=== PATIENT | male | born 1940 | race African-American/Black ===

== ENCOUNTER 2020-08-09 15:40 | Inpatient (IN) | payer OTHER ==
[~2020-08-09] VITALS: Ht 172.7 cm; Wt 53.9 kg
[2020-08-09 16:52] LABS: BASOPHILS % (AUTO) 0.3 % (0.0-5.0); EOSINOPHILS % (AUTO) 0.9 % (0.0-8.0); HEMATOCRIT 42.2 % (42-54); MEAN CORPUSCULAR HGB CONC 31.8 g/dL (32.0-36.0); MEAN CORPUSCULAR VOLUME 88.3 fL (79-99); MONOCYTES % (AUTO) 8.4 % (3.0-13.0); PLATELET COUNT (AUTO) 348 K/uL (130-400); RED BLOOD CELL COUNT(AUTO) 4.78 MIL/uL (4.50-6.20); RED CELL DISTRIBUTION WIDTH 14.6 % (11.0-15.5); WHITE BLOOD COUNT (AUTO) 6.9 K/uL (4.8-10.8)
[2020-08-09 17:06] LABS: CREATININE 1.6 mg/dL (0.5-1.5); POTASSIUM 3.7 mmol/L (3.5-5.1)
[2020-08-09 17:11] LABS: ALBUMIN 3.1 g/dL (3.5-5.0); BILIRUBIN,TOTAL 0.3 mg/dL (0.2-1.0)
[2020-08-09] MEDS ORDERED: NITROGLYCERIN 0.4 MG SL TAB SL PRN (19:30)
[2020-08-09] MEDS ORDERED: ACETAMINOPHEN 650 MG SUPPOSITORY RC PRN ×2 (19:30)
[2020-08-09] MEDS: SODIUM CHLORIDE 0.9% 1000ML 1,000 ML IV SCH (19:30)
[2020-08-09] MEDS ORDERED: SODIUM CHLORIDE 0.9% 1000ML 1,000 ML IV SCH (19:30)
[2020-08-09] MEDS ORDERED: ONDANSETRON HCL 4 MG/2 ML VIAL IV PRN (19:30)
[2020-08-09 19:48] LABS: INR 0.94 (0.85-1.15); PARTIAL THROMBOPLASTIN TIME 27.8 SEC (26.3-35.5); PROTHROMBIN TIME 10.2 SEC (9.6-11.6)
[2020-08-09] MEDS ORDERED: HEPARIN SODIUM 5000UNIT/ML 1ML VIAL ONE (20:30)
[2020-08-09] MEDS ORDERED: SODIUM CHLORIDE 0.9% 1000ML 1,000 ML IV ONE (20:31)
[2020-08-09] MEDS: HEPARIN SODIUM 5000UNIT/ML 1ML VIAL SQ SCH (21:00)
[2020-08-09 21:24] LABS: CREATINE KINASE, TOTAL 43 U/L (21-232); MYOGLOBIN 65 ng/mL (10-92); TROPONIN I < 0.04 ng/mL (0.00-0.06)
[2020-08-09 22:53] LABS: APPEARANCE,URINE Clear (CLEAR); BILIRUBIN,URINE Negative (NEGATIVE); COLOR,URINE Yellow (YELLOW); GLUCOSE, URINE (UA) Negative (NEGATIVE); KETONES,URINE 15 mg/dL (NEGATIVE); LEUKOCYTE ESTERASE ,URINE Small (NEGATIVE); NITRATE,URINE Negative (NEGATIVE); OCCULT BLOOD,URINE Nonhemolyzed Trace (NEGATIVE); PROTEIN,URINE Trace mg/dL (NEGATIVE)
[2020-08-09 23:04] LABS: BACTERIA,URINE Few /HPF (None Seen); MUCUS,URINE Rare LPF (None Seen)
[2020-08-09 23:10] VITALS: BP 132/78
--- NOTE | 2020-08-09 23:35 | NUR ---
RECEIVED PATIENT FROM Ling, REPORT FROM TAYLOR MUÑOZ. PATIENT WAS SENT TO HOSPITAL FROM [facility] D/T ABDNORMAL CT ABD/PELVIS SCAN. DX SBO/ RIGHT INGUINAL HERNIA. PATIENT IS ALERT TO SELF ONLY, HE REMEMBERS HIS HE DOES NOT KNOW WHY HE IS HERE IN THE HOSPITAL. PATIENT IS NPO, DR. HOPKINS CONSULT PENDING TO BE SEEN BY MD. DR. HOPKINS WAS NOTIFIED BY ER OF CONSULT. PATIENT WITH ADVANCED DEMENTIA. UNABLE TO OBTAIN ANY INFORMATION FROM HIM. I CALLED THE NUMBERS ON ER NOTE: KAITLIN MONROE [phone], MAIL BOX FULL, UNABLE TO LEAVE MESSAGE. I CALLED THE OTHER NUMBER PROVIDED, RIYA CONTRERAS, , NOT A WORKING NUMBER. WILL CONT TO MONITOR PATIENT CLOSELY. TELE WITH SR 79.
[2020-08-10 03:52] VITALS: BP 127/58
[2020-08-10 03:59] LABS: BASOPHILS % (AUTO) 0.7 % (0.0-5.0); EOSINOPHILS % (AUTO) 1.4 % (0.0-8.0); HEMATOCRIT 36.8 % (42-54); LYMPHOCYTES % (AUTO) 21.6 % (21.0-51.0); MEAN CORPUSCULAR HEMOGLOBIN 28.1 pg (27.0-33.0); MEAN CORPUSCULAR HGB CONC 32.3 g/dL (32.0-36.0); MONOCYTES % (AUTO) 9.3 % (3.0-13.0); NEUTROPHILS % (AUTO) 66.8 % (40.0-77.0); PLATELET COUNT (AUTO) 362 K/uL (130-400); RED BLOOD CELL COUNT(AUTO) 4.23 MIL/uL (4.50-6.20); RED CELL DISTRIBUTION WIDTH 14.5 % (11.0-15.5); WHITE BLOOD COUNT (AUTO) 5.8 K/uL (4.8-10.8)
[2020-08-10 04:03] LABS: ALBUMIN 2.6 g/dL (3.5-5.0); BILIRUBIN,TOTAL 0.4 mg/dL (0.2-1.0); CREATININE 1.2 mg/dL (0.5-1.5); POTASSIUM 3.1 mmol/L (3.5-5.1); TOTAL PROTEIN, SERUM 6.8 g/dL (6.0-8.3)
[2020-08-10] MEDS: SODIUM CHLORIDE 0.9% 1000ML 1,000 ML IV SCH ×2 (05:09→15:30)
[2020-08-10 08:00] VITALS: BP 114/52
[2020-08-10] MEDS: POTASSIUM CHLORIDE 10MEQ/100ML 100 ML IV PRN ×2 (08:04→13:08)
[2020-08-10] MEDS: FAMOTIDINE/PF 20 MG/2 ML VIAL IV SCH (08:11)
[2020-08-10] MEDS: HEPARIN SODIUM 5000UNIT/ML 1ML VIAL SQ SCH ×3 (08:23→21:34)
--- NOTE | 2020-08-10 08:45 | NUR ---
SMILEY URIAS ROUNDING SMILEY URIAS FOR DR. KELLIE RAMESH AT THIS TIME. ASSESSED PATIENT AT BEDSIDE. PATIENT REPORTS NO ABDOMINAL DISCOMFORTS AT THIS TIME. SMILEY URIAS SAID NO SURGICAL INTERVENTION AT THIS TIME, NO NEED FOR NG TUBE SINCE NO NAUSEA/VOMITING REPORTED AND TO MAINTAIN NPO STATUS.
--- NOTE | 2020-08-10 09:25 | NUR ---
RD NOTIFICATION Pt admitted with SBO, Inguinal hernia, constipation. Pt is NPO and also pending surgical evaluation. Pt with low BMI (18.2), advanced age. High malnutrition risk related to inadequate energy/protein intake as evidenced by low BMI of 18.2. Pt with Heparin, Pepcid, KCl medications in place. Monitored labs: K 3.1, BUN 22, ALT 9, Alb 2.6. Recommend alternate means nutrition. RD to continue to monitor. Please notify as additional nutrition concerns arise. Thank you. Addendum: 08/10/20 at [address] Amended: Links added.
--- NOTE | 2020-08-10 09:50 | NUR ---
BARRY NOTE: Referral to BARRY--Unable to contact family, patient poor historian BARRY visited pt. who is oriented to self, reports that he resides with his mother in [place], and that he walked to this facility. BARRY contacted Ama Flowers [phone] information found in medical record and she reports that pt. resides at [facility] and that she transported pt. to ED last night. BARRY informed that pt. is single, has been a resident of [facility] less than a year and was referred by Emeka Mosqueda. Ama reports that pt's altered mental status is recent in the last five days, confused and decrease in appetite; prior to that was aware of all his surroundings and independent. Pt. has no DME, HH, Oxygen or provider services in the home, although they assist with meal prep, cleaning and transportation for their residents. Ama denies any current services through [facility] or [facility]. Ama stated that she will coal picker pt. when he is medially cleared for discharge. BARRY provided with pt's sister information: Nallely Rose [phone], [phone]. Telephone call to pt's sister Nallely, who reports that she resides in [place] and may be contacted for any concerns or consents needed, stating that pt. is single and had one son but age and whereabouts are unknown for years. Nallely stated that plan is for pt. to return to [facility] unless she can make arrangements to relocate pt. to [place]. Nallely provided additional contact: [facility]/Brother [phone] Pt's sister Nallely provided with BARRY's contact number as well as nurses station and [facility] Contact Information provided to TONI Arriola and [facility] by this worker. Contact information/Changes faxed to registration by this worker. Addendum: 08/10/20 at 1256 by PAUL CABRERA Amended: Links added.
--- NOTE | 2020-08-10 09:50 | NUR ---
Pt. is single, resides at [facility] [address]. bat person/CG Ama Flowers [phone] for transport home. No HH, DME, Oxygen or Provider services. PCP is Dr. Gonzalez and [place]; [facility] on [address]. Siblings reside out of town: Sister/Lian Rose [phone], ; Brother Elier Coelho [phone]. Plan is to return to [facility] at discharge, unless family can make arrangements to relocate with them. Addendum: 08/10/20 at 1227 by PAUL CABRERA Amended: Links added.
[2020-08-10 11:17] VITALS: BP 147/64
[2020-08-10 16:19] VITALS: BP 164/53
[2020-08-10 20:00] VITALS: BP 162/70
[2020-08-10] MEDS: DEXTROSE 5%-LACTATED RINGERS 1,000 ML IV SCH (23:54)
[2020-08-11] VITALS: BP 163/84
[2020-08-11 03:39] LABS: BASOPHILS % (AUTO) 1.1 % (0.0-5.0); EOSINOPHILS % (AUTO) 1.8 % (0.0-8.0); HEMATOCRIT 40.9 % (42-54); LYMPHOCYTES % (AUTO) 23.9 % (21.0-51.0); MEAN CORPUSCULAR VOLUME 87.4 fL (79-99); MONOCYTES % (AUTO) 11.9 % (3.0-13.0); NEUTROPHILS % (AUTO) 61.1 % (40.0-77.0); PLATELET COUNT (AUTO) 362 K/uL (130-400); RED BLOOD CELL COUNT(AUTO) 4.68 MIL/uL (4.50-6.20); RED CELL DISTRIBUTION WIDTH 14.5 % (11.0-15.5); WHITE BLOOD COUNT (AUTO) 4.5 K/uL (4.8-10.8)
[2020-08-11 03:58] LABS: CREATININE 1.1 mg/dL (0.5-1.5); POTASSIUM 3.5 mmol/L (3.5-5.1)
[2020-08-11 04:00] VITALS: BP_SYST 147; BP_SYST 162; BP_DIAS 74; BP_DIAS 75
[2020-08-11 08:00] VITALS: BP 149/77
[2020-08-11] MEDS: HEPARIN SODIUM 5000UNIT/ML 1ML VIAL SQ SCH ×3 (09:00→20:43)
[2020-08-11] MEDS ORDERED: LACTATED RINGERS 1000ML 1,000 ML IV ONE (10:00)
[2020-08-11] MEDS: FAMOTIDINE/PF 20 MG/2 ML VIAL IV SCH (10:18)
[2020-08-11] MEDS: AMLODIPINE BESYLATE 5 MG TAB PO SCH (10:18)
--- NOTE | 2020-08-11 10:18 | NUR ---
RD UPDATE Pt continues NPO pending Surgical Evaluation. Recommend to considered alternate means nutrition in the form of PPN or TPN secondary to compromised GI Function and malnutrition risk. Pt with low weight for stature and age. Anticipate NPO status >[address] to continue to monitor.
--- NOTE | 2020-08-11 11:26 | NUR ---
I have sent a message to SMILEY Molina to see if pt can start a diet, pending call back. i have also called the [facility] that pt lives at and left a message in regards to finding out pt's home medications and allergies.
[2020-08-11] MEDS: DEXTROSE 5%-LACTATED RINGERS 1,000 ML IV SCH (11:35)
--- NOTE | 2020-08-11 11:50 | NUR ---
i received a call back from luis at pt's assisted living and she stated that pt takes no home medications and is not allergic to any medications that she knows of. i have informed dr moran of this.
[2020-08-11 12:00] VITALS: BP 155/71
--- NOTE | 2020-08-11 14:35 | NUR ---
dr moran made aware pt is refusing to take the heparin injection
[2020-08-11 16:00] VITALS: BP 147/74
--- NOTE | 2020-08-11 18:59 | NUR ---
PT'S SITER SULAIMAN ALEGRE CALLED ON THE PHONE TO CHECK ON PATIENT AND SHE STATED SHE DOES NOT WANT HER BROTHER TO GO BACK TO THE [facility]AC[facility] AND THAT SHE WOULD PREFER WE CALL HER WHEN PT IS DISCHARGED AND A FAMILY MEMEBER WILL PICK HIM UP. SHE STATED SHE HAS ALREADY SPOKEN TO A ROOM MAID HERE AND TOLD THEM THIS.
[2020-08-11 19:39] VITALS: BP 172/83
[2020-08-12] VITALS: BP 126/59
[2020-08-12] MEDS: DEXTROSE 5%-LACTATED RINGERS 1,000 ML IV SCH ×2 (00:55→14:15)
[2020-08-12 04:00] VITALS: BP 124/55
[2020-08-12 08:00] VITALS: BP 115/63
[2020-08-12] MEDS: AMLODIPINE BESYLATE 5 MG TAB PO SCH (08:05)
[2020-08-12] MEDS: FAMOTIDINE/PF 20 MG/2 ML VIAL IV SCH (08:05)
[2020-08-12 08:17] LABS: THYROID STIMULATING HORMONE 2.27 uIU/mL (0.36-3.74)
--- NOTE | 2020-08-12 10:29 | NUR ---
i spoke to dr solis on the phone and informed of new consult for surgical clearance; order received to do a 2d echo
[2020-08-12] MEDS: HEPARIN SODIUM 5000UNIT/ML 1ML VIAL SQ SCH ×3 (10:50→20:56)
[2020-08-12 11:00] VITALS: BP 131/67
[2020-08-12 16:00] VITALS: BP 150/77
--- NOTE | 2020-08-12 16:22 | NUR ---
I HAVE SPOKEN TO PT'S SISTER MEGAN ALEGRE AND UPDATED HER ON PT'S CONDITION AND FACT THAT HE WOULD PROBABLY HAVE SURGERY THIS COMING FRIDAY PENDING CARDIAC SURGICAL CLEARANCE; I ASKED IF SHE WOULD GIVE A PHONE CONSENT FOR HIM TO UNDERGO THE SURGERY FRIDAY AND SHE STATED YES. I TRANSFERED THE CALL INTO PT'S ROOM SO THAT THEY COULD TALK TO EACH OTHER; PT IS UNABLE TO SIGN OWN CONSENT BECAUSE HE IS ORIENTED TO PERSON ONLY AND NOT ORIENTED TO DIAGNOSIS, PLACE OR TIME.
--- NOTE | 2020-08-12 18:42 | NUR ---
pt had a moderate size bowel movement that has a small amount of liquid stool and a moderate amount of formed soft stool; all a light brown color.
[2020-08-12 19:54] VITALS: BP 124/75
[2020-08-13 00:32] VITALS: BP 121/67
[2020-08-13] MEDS: DEXTROSE 5%-LACTATED RINGERS 1,000 ML IV SCH ×2 (03:35→16:55)
[2020-08-13 04:12] VITALS: BP 103/59
[2020-08-13 06:23] LABS: BASOPHILS % (AUTO) 0.9 % (0.0-5.0); EOSINOPHILS % (AUTO) 0.9 % (0.0-8.0); MEAN CORPUSCULAR HGB CONC 32.6 g/dL (32.0-36.0); MEAN CORPUSCULAR VOLUME 85.7 fL (79-99); MONOCYTES % (AUTO) 10.5 % (3.0-13.0); NEUTROPHILS % (AUTO) 62.3 % (40.0-77.0); PLATELET COUNT (AUTO) 358 K/uL (130-400); RED CELL DISTRIBUTION WIDTH 14.2 % (11.0-15.5); WHITE BLOOD COUNT (AUTO) 5.6 K/uL (4.8-10.8)
[2020-08-13 06:52] LABS: POTASSIUM 3.1 mmol/L (3.5-5.1)
[2020-08-13] MEDS ORDERED: LIDOCAINE HCL-MPF 1% 2ML VIAL IV PRN (07:00)
[2020-08-13] MEDS ORDERED: POTASSIUM CHLORIDE 10MEQ/100ML 100 ML IV PRN (07:00)
[2020-08-13] MEDS ORDERED: POTASSIUM CHLORIDE 20 MEQ ERTAB PO SCH (09:00)
[2020-08-13] MEDS: HEPARIN SODIUM 5000UNIT/ML 1ML VIAL SQ SCH (09:09)
[2020-08-13] MEDS: AMLODIPINE BESYLATE 5 MG TAB PO SCH (09:10)
[2020-08-13] MEDS: FAMOTIDINE/PF 20 MG/2 ML VIAL IV SCH (09:10)
[2020-08-13 12:00] VITALS: BP 105/53
[2020-08-13 12:20] LABS: CREATININE 1.3 mg/dL (0.5-1.5); MAGNESIUM 1.8 mg/dL (1.80-2.40); POTASSIUM 3.8 mmol/L (3.5-5.1)
--- NOTE | 2020-08-13 14:10 | NUR ---
i have spoken on the phone with pt's sister dimitrios bradley and received a phone consent for pt to go to surgery tomorrow for a hernia repair; 2nd witness carlos eduardo perez.
[2020-08-13 16:00] VITALS: BP 123/57
[2020-08-13 20:00] VITALS: BP 132/74
[2020-08-14] VITALS (26 sets, daily range): BP systolic 97–184; BP diastolic 43–98
[2020-08-14] MEDS: DEXTROSE 5%-LACTATED RINGERS 1,000 ML IV SCH (06:15)
[2020-08-14 07:10] LABS: BASOPHILS % (AUTO) 0.6 % (0.0-5.0); EOSINOPHILS % (AUTO) 1.8 % (0.0-8.0); HEMATOCRIT 40.7 % (42-54); LYMPHOCYTES % (AUTO) 24.6 % (21.0-51.0); MEAN CORPUSCULAR HEMOGLOBIN 28.1 pg (27.0-33.0); MEAN CORPUSCULAR HGB CONC 32.4 g/dL (32.0-36.0); MEAN CORPUSCULAR VOLUME 86.6 fL (79-99); MONOCYTES % (AUTO) 12.1 % (3.0-13.0); NEUTROPHILS % (AUTO) 60.5 % (40.0-77.0); PLATELET COUNT (AUTO) 322 K/uL (130-400); RED CELL DISTRIBUTION WIDTH 14.3 % (11.0-15.5)
[2020-08-14 07:20] LABS: CREATININE 1.1 mg/dL (0.5-1.5); MAGNESIUM 1.7 mg/dL (1.80-2.40); POTASSIUM 3.8 mmol/L (3.5-5.1)
[2020-08-14] MEDS: AMLODIPINE BESYLATE 5 MG TAB PO SCH (09:00)
[2020-08-14] MEDS: FAMOTIDINE/PF 20 MG/2 ML VIAL IV SCH (09:00)
--- NOTE | 2020-08-14 09:00 | NUR ---
PREOP PT TRANSFERRED FROM 3RD FLOOR TO HOLDING. PT HAS DEMENTIA BUT IS AWAKE AND ALERT AT THIS TIME. PT ORIENTED TO ROOM AND CALL LIGHT. WILL CONTINUE TO MONITOR PT.
--- NOTE | 2020-08-14 09:15 | NUR ---
SW NOTE: Call from pt's sister Lian Rose, requesting assistance with short term alternate placement for pt. Sister voiced that she would like if all possible for pt. not to return to [facility], stating they lack in communication with her about pt. Sister's plan is to relocate pt. to [place] with her, however, after pt. has completed all post op appointments. Sister informed that SW would speak w/Automobile Glass Technician about alternate plans at d/c and follow up with her this afternoon; Sister verbalized an understanding.
[2020-08-14] MEDS ORDERED: CEFAZOLIN SODIUM 1 GM VIAL ONE (09:45)
[2020-08-14] MEDS ORDERED: LIDOCAINE PF 2% 5ML ABBOJECT ONE (09:55)
[2020-08-14] MEDS ORDERED: SUCCINYLCHOLINE CHLORIDE 20 MG/ML 10 ML VIAL ONE (09:55)
[2020-08-14] MEDS ORDERED: MIDAZOLAM HCL 1 MG/ML 2ML VIAL ONE (09:56)
[2020-08-14] MEDS ORDERED: GLYCOPYRROLATE 1 MG/5 ML SYRINGE ONE (09:56)
[2020-08-14] MEDS ORDERED: DEXAMETHASONE SOD PHOSPHATE 10MG/ML 1ML VIAL ONE ×2 (09:56→11:00)
[2020-08-14] MEDS ORDERED: ONDANSETRON HCL 4 MG/2 ML VIAL ONE (09:56)
[2020-08-14] MEDS ORDERED: PROPOFOL 10 MG/ML 20ML VIAL IV ONE (09:56)
[2020-08-14] MEDS ORDERED: NEOSTIGMINE 5MG/5ML SYR IV ONE (09:56)
[2020-08-14] MEDS ORDERED: LACTATED RINGERS 1000ML 1,000 ML IV ONE (09:57)
[2020-08-14] MEDS ORDERED: ROCURONIUM 10MG/1ML SYR 10 MG/ML ML ONE (09:57)
[2020-08-14] MEDS ORDERED: FENTANYL CITRATE PF 50 MCG/1 ML 2ML VIAL ONE (09:57)
[2020-08-14] MEDS ORDERED: CEFAZOLIN SODIUM 1 GM VIAL IVP PRN (10:00)
[2020-08-14] MEDS ORDERED: EPHEDRINE SULFATE 50 MG/ML AMPULE ONE (10:23)
--- NOTE | 2020-08-14 14:30 | NUR ---
Telephone call from pt's sister Lian Rose, re-temporary placement options, again, stating if no alternate found pt. would have to return to [facility]. SW phoned [facility] and was informed no bed availability; sister informed inquiries would be made to other homes and depending on pt's needs post dc SNF. BARRY will discuss with Sheldon/DEENA. Pt's sister provided with information on [employer] [employer] in [place] as well as national hotline number.
--- NOTE | 2020-08-14 14:39 | NUR ---
RD FOLLOW UP Pt at time of assessment is NPO. Pt has hernia repair sx scheduled for 08/14/20 as per EMR Pt was previously on a CLD and consumed 25%, as per RN pt tolerated diet well Pt has had bowel movements Pt has low BMI for age. (BMI OF 17.6) Pt is moderate-severe malnourished as evidenced by low BMI for age and muscle/fat loss upon NFPA. RD RECOMMENDATION: Advance diet as tolerated When medically appropriate, consider GI soft diet. Ensure TID. Monitor for chewing/swallowing difficulty. Monitor PO tolerance and PO intake RD will continue to monitor pt's status Contact as nutritional concerns arise. LABS: K 3.8, TOT CA 9.8, ALB 2.6, LBM: 08/12/20 Addendum: 08/14/20 at [address] Amended: Links added.
[2020-08-14] MEDS ORDERED: MORPHINE SULFATE 2 MG/ML 1ML SYG IVP ONE ×2 (18:45→20:30)
[2020-08-14 20:33] LABS: HEMATOCRIT 39.4 % (42-54); MEAN CORPUSCULAR HEMOGLOBIN 28.3 pg (27.0-33.0); MEAN CORPUSCULAR HGB CONC 32.7 g/dL (32.0-36.0); MEAN CORPUSCULAR VOLUME 86.4 fL (79-99); RED BLOOD CELL COUNT(AUTO) 4.56 MIL/uL (4.50-6.20); RED CELL DISTRIBUTION WIDTH 14.5 % (11.0-15.5); WHITE BLOOD COUNT (AUTO) 14.9 K/uL (4.8-10.8)
[2020-08-14 20:43] LABS: CREATININE 1.4 mg/dL (0.5-1.5); MAGNESIUM 1.4 mg/dL (1.80-2.40); POTASSIUM 3.9 mmol/L (3.5-5.1)
[2020-08-14] MEDS: MAGNESIUM 2GM PREMIX 50ML 50 ML IV PRN (21:37)
[2020-08-15 03:26] LABS: CREATININE 1.5 mg/dL (0.5-1.5); MAGNESIUM 2.5 mg/dL (1.80-2.40); POTASSIUM 3.8 mmol/L (3.5-5.1)
[2020-08-15 03:48] VITALS: BP 137/77
[2020-08-15 06:09] LABS: BASOPHILS % (AUTO) 0.3 % (0.0-5.0); EOSINOPHILS % (AUTO) 0.1 % (0.0-8.0); HEMATOCRIT 41.7 % (42-54); LYMPHOCYTES % (AUTO) 5.2 % (21.0-51.0); MEAN CORPUSCULAR HEMOGLOBIN 28.1 pg (27.0-33.0); MEAN CORPUSCULAR HGB CONC 32.9 g/dL (32.0-36.0); MEAN CORPUSCULAR VOLUME 85.6 fL (79-99); MONOCYTES % (AUTO) 9.2 % (3.0-13.0); NEUTROPHILS % (AUTO) 84.9 % (40.0-77.0); PLATELET COUNT (AUTO) 207 K/uL (130-400); RED BLOOD CELL COUNT(AUTO) 4.87 MIL/uL (4.50-6.20); RED CELL DISTRIBUTION WIDTH 14.4 % (11.0-15.5); WHITE BLOOD COUNT (AUTO) 14.5 K/uL (4.8-10.8)
[2020-08-15 07:50] VITALS: BP 155/79
[2020-08-15] MEDS ORDERED: KETOROLAC TROMETHAMINE 15MG/ML IV PRN (09:15)
[2020-08-15] MEDS: LACTATED RINGERS 1000ML 1,000 ML IV SCH ×2 (09:15→23:33)
[2020-08-15 09:50] LABS: CREATINE KINASE, TOTAL 165 U/L (21-232); MYOGLOBIN 120 ng/mL (10-92); TROPONIN I < 0.04 ng/mL (0.00-0.06)
[2020-08-15] MEDS ORDERED: CEFTRIAXONE SODIUM 1 GM IVP SCH (10:00)
[2020-08-15] MEDS: FAMOTIDINE/PF 20 MG/2 ML VIAL IV SCH (10:36)
[2020-08-15] MEDS: AMLODIPINE BESYLATE 5 MG TAB PO SCH (10:36)
--- NOTE | 2020-08-15 11:40 | NUR ---
SW NOTE: Spoke with pt's sister Lian Rose, re-information on other placement options. SW contacted [facility] [phone] and spoke w/Mindy who reported as of this time, one bed available; this information provided to Ms. Rose. Again, SW stressed the importance of selecting placement, new retirement vs. returning to [facility] vs SNF, so that CM could assist in referral process/planning. Pt's sister Ms. Rose verbalized an understanding, stating she will contact Mindy[facility], then discuss with her brother Elier and notify this worker. SW will continue to follow and assist as needed. Again: [facility] contacted by this worker and no bed availability. CM/Gabi martínez.
[2020-08-15 12:00] VITALS: BP 162/82
--- NOTE | 2020-08-15 14:55 | NUR ---
DYSPHAGIA EVAL COMPLETED. +S/S OF ASPIRATION OF RESIDUE IN ORAL CAVITY WITH SOLIDS AT THIS TIME. RECOMMEND MECHANICAL SOFT/GROUND, THIN LIQUIDS, PILLS WHOLE WITH FOOD TOLERATED. STRATEGIES RECOMMENDED: CHECK FOR POCKETING/RESIDUE AFTER MEALS, ALTERNATE BITES/SIPS, EXTRA DRY SWALLOWS, SMALL BITES/SIPS AND SIT UPRIGHT DURING AND 30 MINUTES AFTER P.O. INTAKE. SPECIAL FORCES COMMUNICATIONS SERGEANT COORDINATED WITH NURSE RAMOS OF RESULTS AND RECOMMENDATIONS. Addendum: 08/15/[address]AKARI KAISER Amended: Links added.
[2020-08-15 15:45] LABS: CREATINE KINASE, TOTAL 178 U/L (21-232); MYOGLOBIN 102 ng/mL (10-92); TROPONIN I < 0.04 ng/mL (0.00-0.06)
[2020-08-15 16:00] VITALS: BP 119/75
--- NOTE | 2020-08-15 16:30 | NUR ---
SW NOTE: Call back from pt's sister Ms. Rose stating she is awaiting call back from [facility]; d/c plan pending. Ms. Rose to follow up with this worker tomorrow. Gabi/DEENA made aware.
[2020-08-15 19:16] VITALS: BP 143/77
[2020-08-15] MEDS: ACETAMINOPHEN 325 MG TAB PO SCH (20:30)
[2020-08-15 23:30] VITALS: BP 142/74
[2020-08-16 03:54] VITALS: BP 149/85
--- NOTE | 2020-08-16 04:00 | NUR ---
ROUNDS PATIENT RESTING IN BED WITH OU CLOSED. EASILY AROUSED. EXTRA TIME NEEDED TO VOICE NEEDS. NO COMPLAINTS OF PAIN. NO FACIAL GRIMACING NOTED. RESP EVEN AND UNLABORED. NO SOB NOTED. VITALS STABLE. AFEBRILE. RESP EVEN AND UNLABORED. NO SOB NOTED. ON ROOM AIR. TOLERATING LR AT 60ML/HR. NO NAUSEA OR VOMITING NOTED. TOTAL CARE RENDERED Q2H AND PRN. FALL PRECAUTIONS IN PLACE. SITTER IN PLACE. NO SIGNS OF DISTRESS NOTED. CALL LIGHT WITHIN REACH. WILL CONTINUE TO BE OBSERVED. Addendum: 08/16/20 at 0413 by JB CABRERA RN RN Amended: Links added.
[2020-08-16] MEDS: ACETAMINOPHEN 325 MG TAB PO SCH (04:34)
[2020-08-16 05:34] LABS: BASOPHILS % (AUTO) 0.4 % (0.0-5.0); EOSINOPHILS % (AUTO) 1.3 % (0.0-8.0); HEMATOCRIT 39.2 % (42-54); LYMPHOCYTES % (AUTO) 9.1 % (21.0-51.0); MEAN CORPUSCULAR HGB CONC 32.1 g/dL (32.0-36.0); MEAN CORPUSCULAR VOLUME 87.1 fL (79-99); MONOCYTES % (AUTO) 11.7 % (3.0-13.0); NEUTROPHILS % (AUTO) 77.1 % (40.0-77.0); PLATELET COUNT (AUTO) 257 K/uL (130-400); RED CELL DISTRIBUTION WIDTH 14.7 % (11.0-15.5); WHITE BLOOD COUNT (AUTO) 11.1 K/uL (4.8-10.8)
[2020-08-16 06:19] LABS: CARBON DIOXIDE 28 mmol/L (21-32); CHLORIDE 110 mmol/L (101-111); CREATINE KINASE, TOTAL 180 U/L (21-232); CREATININE 2.1 mg/dL (0.5-1.5); GLOMERULAR FILTR. RATE CALC 39 mL/min (>60); GLUCOSE,RANDOM 116 mg/dL (70-105); MYOGLOBIN 69 ng/mL (10-92); POTASSIUM 3.5 mmol/L (3.5-5.1); SODIUM SERUM 144 mmol/L (136-145); TROPONIN I < 0.04 ng/mL (0.00-0.06); UREA NITROGEN, BLOOD 12 mg/dL (7-18)
[2020-08-16] MEDS: TRAMADOL HCL 50 MG TABLET PO PRN (07:25)
[2020-08-16 08:00] VITALS: BP 169/82
--- NOTE | 2020-08-16 08:55 | NUR ---
FOLLOW UP COMPLETED. RECYCLING MANAGER COORDINATED WITH NURSE ETIENNE. PATIENT RECOMMENDED DIET MECHANICAL SOFT/FINELY CHOPPED SOLIDS, THIN LIQUIDS. PER NURSE, PATIENT WAS ADVANCED FROM LIQUID DIET TO PUREE SOLIDS AND TOLERATING IT WELL AND WITH NO S/S OF ASPIRATION. RECYCLING MANAGER WILL CONTINUE TO FOLLOW PATIENT TO SEE IF HE TOLERATES MECH SOFT/GROUND ONCE PATIENT IS ADVANCED. Addendum: 08/16/[address]AKARI KAISER Amended: Links added.
[2020-08-16] MEDS: FAMOTIDINE/PF 20 MG/2 ML VIAL IV SCH (09:31)
[2020-08-16] MEDS: AMLODIPINE BESYLATE 5 MG TAB PO SCH (09:31)
--- NOTE | 2020-08-16 10:00 | NUR ---
BARRY NOTE BARRY spoke with pt's sister Lian Rose who stated that she has spoken with Ms. Mendoza/[facility], is satisfied with conversation/outcome and Ms. Lian Rose requested that pt. be [facility] at discharge. BARRY contacted Ama Flowers/[facility] to inquire if they are able to provide transportation at d/c and Ama stated that they are and that she will forklift picker pt. when medically cleared. Contact Number for Transportation at d/c: Ama Flowers [phone] AshleyRN made aware.
--- NOTE | 2020-08-16 11:31 | NUR ---
CM Note: POC CM spoke to Elizabet REDDY regarding dc dispo, as per sister pt ok to go back to [facility] to finish this year and then will plan to transfer pt closer to home. As per Elizabet Quintero [facility] reaccepted patient and may come flower buncher or picker pt by their facility van whenever ready to dc. Primary nurse Orin MUÑOZ made aware. Dr Beny Li updated. CM to continue to follow up.
[2020-08-16 11:42] VITALS: BP 160/72
[2020-08-16] MEDS: LACTATED RINGERS 1000ML 1,000 ML IV SCH ×2 (13:34→21:34)
--- NOTE | 2020-08-16 14:00 | NUR ---
RD FOLLOW UP Pt is currently on a GI soft diet with a puree modification. As per PAYROLL AND BENEFITS ANALYST, pt is tolerating diet and consumed 100% of breakfast and lunch. ASSOCIATE PROFESSOR OF MATHEMATICS recommendations are of mechanical soft/ground with thin liquids. RD RECOMMENDATION: Continue current diet order. When medically feasible, advance pt to a mechanical soft/ground diet modifier as per ASSOCIATE PROFESSOR OF MATHEMATICS recommendation If PO intake <50% consider ONS Ensure BID. Monitor PO intake RD will continue to follow, thank you Addendum: 08/16/20 at [address] Amended: Links added.
--- NOTE | 2020-08-16 14:41 | NUR ---
having difficulty collecting urine sample for sodium and creatine, pt cont. to void incontinent into diaper instead of using the urinal; i have removed pt's diaper and left off and placed a urinal between his legs and encouraged him to use it; will cont. to monitor.
[2020-08-16 16:00] VITALS: BP 160/88
--- NOTE | 2020-08-16 17:50 | NUR ---
PT CONTINUES TO VOID INCONTINENT AND WONT USE THE URINAL; WHEN I TALKED TO HIM ABOUT IN AND OUT CATHING HIM TO COLLECT A URINE SAMPLE HE REFUSED AND SQUEEZED HIS LEGS TIGHTLY TOGETHER AND WOULD NOT LET ME GET NEAR HIM.
[2020-08-16] MEDS: DOCUSATE SODIUM 100 MG CAP PO SCH (19:13)
[2020-08-16 20:04] VITALS: BP 162/75
[2020-08-16 23:54] VITALS: BP 168/90
[2020-08-17 04:04] VITALS: BP 171/86
[2020-08-17] MEDS: LACTATED RINGERS 1000ML 1,000 ML IV SCH ×2 (04:46→19:21)
[2020-08-17 06:08] LABS: BASOPHILS % (AUTO) 0.5 % (0.0-5.0); EOSINOPHILS % (AUTO) 2.9 % (0.0-8.0); HEMATOCRIT 38.9 % (42-54); LYMPHOCYTES % (AUTO) 9.5 % (21.0-51.0); MEAN CORPUSCULAR HEMOGLOBIN 27.9 pg (27.0-33.0); MEAN CORPUSCULAR HGB CONC 32.1 g/dL (32.0-36.0); MEAN CORPUSCULAR VOLUME 86.8 fL (79-99); MONOCYTES % (AUTO) 7.9 % (3.0-13.0); NEUTROPHILS % (AUTO) 78.8 % (40.0-77.0); PLATELET COUNT (AUTO) 285 K/uL (130-400); RED BLOOD CELL COUNT(AUTO) 4.48 MIL/uL (4.50-6.20); RED CELL DISTRIBUTION WIDTH 14.9 % (11.0-15.5); WHITE BLOOD COUNT (AUTO) 10.5 K/uL (4.8-10.8)
[2020-08-17 06:23] LABS: CREATININE 2.6 mg/dL (0.5-1.5); POTASSIUM 3.4 mmol/L (3.5-5.1)
--- NOTE | 2020-08-17 07:00 | NUR ---
URINE FOR SODIUM AND CREATINE COLLECTED AND SENT TO LAB
[2020-08-17 07:28] LABS: CREATININE,URINE RANDOM 23 mg/dL (30-135); SODIUM,URINE RANDOM 108 mmol/l (40-220)
[2020-08-17 07:56] VITALS: BP 138/99
[2020-08-17] MEDS: DOCUSATE SODIUM 100 MG CAP PO SCH ×2 (08:20→20:32)
[2020-08-17] MEDS: FAMOTIDINE/PF 20 MG/2 ML VIAL IV SCH (08:20)
[2020-08-17] MEDS: AMLODIPINE BESYLATE 5 MG TAB PO SCH (08:20)
[2020-08-17] MEDS: TRAMADOL HCL 50 MG TABLET PO PRN ×2 (08:21→20:32)
[2020-08-17 11:01] VITALS: BP 152/86
[2020-08-17] MEDS: POTASSIUM CHLORIDE 20 MEQ ERTAB PO PRN (11:20)
--- NOTE | 2020-08-17 13:05 | NUR ---
DR JOSELIN OLIVERA ROUNDED ON PATIENT ORDERS RECEIVED FOR CMP,CBC AND PHOS LAB DRAW IN AM. ORDERS PLACED
[2020-08-17 15:38] VITALS: BP 131/79
[2020-08-17 19:00] VITALS: BP 147/70
--- NOTE | 2020-08-17 20:00 | NUR ---
assessment patient awake, alert, ox1, no sob, no c/o pain, patient poor insight, no teaching done, dressing abdomen, 1:[address] at bedside, call alejandro at reach
[2020-08-17] MEDS: HEPARIN SODIUM 5000UNIT/ML 1ML VIAL SQ SCH (23:46)
[2020-08-18] VITALS: BP 163/79
[2020-08-18 04:00] VITALS: BP 130/62
[2020-08-18 06:05] LABS: HEMATOCRIT 35.8 % (42-54); MEAN CORPUSCULAR HEMOGLOBIN 28.4 pg (27.0-33.0); MEAN CORPUSCULAR VOLUME 86.1 fL (79-99); PLATELET COUNT (AUTO) 246 K/uL (130-400); RED BLOOD CELL COUNT(AUTO) 4.16 MIL/uL (4.50-6.20); RED CELL DISTRIBUTION WIDTH 14.8 % (11.0-15.5); WHITE BLOOD COUNT (AUTO) 8.7 K/uL (4.8-10.8)
[2020-08-18 06:28] LABS: BAND NEUTROPHILS % (MANUAL) 3 % (0-2); BASOPHILS % (MANUAL) 4 % (0-2); EOSINOPHILS % (MANUAL) 8 % (1-6); LYMPHOCYTES % (MANUAL) 13 % (22-44); MAN.DIFF COMMENT-IMPRESSION MANUAL DIFFERENTIAL; MONOCYTES % (MANUAL) 6 % (2-9); PLATELET MORPHOLOGY COMMENT ADEQUATE; REACTIVE LYMPHOCYTES 2 % (0-0); SEGMENTED NEUTROPHILS % 64 % (40-70)
[2020-08-18 06:33] LABS: ALBUMIN 2.4 g/dL (3.5-5.0); BILIRUBIN,TOTAL 0.5 mg/dL (0.2-1.0); CREATININE 3.1 mg/dL (0.5-1.5); PHOSPHORUS 3.3 mg/dL (2.5-4.9); POTASSIUM 3.4 mmol/L (3.5-5.1); TOTAL PROTEIN, SERUM 6.7 g/dL (6.0-8.3)
[2020-08-18] MEDS: FAMOTIDINE/PF 20 MG/2 ML VIAL IV SCH (08:28)
[2020-08-18] MEDS: AMLODIPINE BESYLATE 5 MG TAB PO SCH (08:28)
[2020-08-18] MEDS: DOCUSATE SODIUM 100 MG CAP PO SCH ×2 (08:29→20:06)
--- NOTE | 2020-08-18 09:10 | NUR ---
FOLLOW UP COMPLETED. PERSONAL FINANCIAL ADVISOR COORDINATED WITH NURSE JORGENSEN. PER NURSE, PATIENT IS TOLERATING PUREED WITH SOME DIFFICULTY (INCREASED TIME IN ORAL CAVITY). PATIENT IS NOT READY TO ADVANCE TO MECHANICAL SOFT/FINELY CHOPPED AT THIS TIME. CONTINUE WITH PUREED SOLIDS TOLERATED. NOTIFY PERSONAL FINANCIAL ADVISOR IF FURTHER EVALUATION IS NEEDED OR IF PATIENT'S STATUS CHANGES. Addendum: 08/18/[address]AKARI KAISER Amended: Links added.
[2020-08-18] MEDS: HEPARIN SODIUM 5000UNIT/ML 1ML VIAL SQ SCH ×2 (10:42→20:33)
[2020-08-18] MEDS: LACTATED RINGERS 1000ML 1,000 ML IV SCH ×2 (13:45→13:49)
--- NOTE | 2020-08-18 14:20 | NUR ---
BOWEL MOVEMENT ASSISTED ELECTRIC WIRER TO HELP CLEAN PATIENT AFTER A BOWEL MOVEMENT, STOOL LIGHT BROWN IN COLOR AND SOFT. PATIENT ALSO APPEARED TO HAVE SMALL AMOUNT OF URINE IN BRIEFS, SO I PERFORMED POST VOID BLADDER RESIDUAL OBTAINED READING OF 837 ML.
--- NOTE | 2020-08-18 14:30 | NUR ---
URINARY RETENTION PERFORMED BLADDER SCAN AND OBTAINED READING OF 837 ML. PATIENT ALERT AND ORIENTED X1, UNABLE TO RECEIVE TEACHING ON PURPOSE FOR SULTANA CATHETER INSERTION. I DID TELL PATIENT HE HAD A LOT OF URINE IN HIS BLADDER AND SO I WOULD HAVE TO PLACE A SULTANA CATHETER TO EMPTY HIS BLADDER. PATIENT DID APPEAR UNCOMFORTABLE, CREDENTIALING MANAGER ASSISTED TO HELP PATIENT MAINTAIN APPROPRIATE SUPINE POSITION TO EASE SULTANA CATHETER INSERTION. STERILE TECHNIQUE USED TO PLACE 14 FR SULTANA CATHETER UNTIL URINE VISIBLE IN SULTANA CATHETER. INFLATED SULTANA CATHETER BALLOON WITH 10CC SALINE SYRINGE, ANCHORED SULTANA CATHETER TO LEFT UPPER THIGH USING STATLOCK DEVICE. APPROXIMATELY 900ML OF YELLOW COLORED URINE EMPTIED INTO SULTANA CATHETER BAG. PATIENT APPEARED MORE COMFORTABLE AFTER SULTANA CATHETER INSERTION. I ASKED PATIENT IF HE FELT BETTER AND PATIENT SMILED AND NODDED.
[2020-08-18 17:03] LABS: APPEARANCE,URINE Clear (CLEAR); BILIRUBIN,URINE Negative (NEGATIVE); COLOR,URINE Yellow (YELLOW); GLUCOSE, URINE (UA) Negative (NEGATIVE); KETONES,URINE Negative (NEGATIVE); LEUKOCYTE ESTERASE ,URINE Negative (NEGATIVE); NITRATE,URINE Negative (NEGATIVE); OCCULT BLOOD,URINE Small (NEGATIVE); PH,URINE 7.5 (5.0-8.0); PROTEIN,URINE Negative (NEGATIVE); UROBILINOGEN,URINE 0.2 mg/dL (0.2-1.0)
[2020-08-18 17:21] LABS: BACTERIA,URINE Rare /HPF (None Seen); WBC,URINE 0-1 /HPF (0-1)
[2020-08-18 17:23] LABS: SQUAMOUS EPITHELIAL CELL,UR None Seen /HPF (0-2)
[2020-08-18] MEDS ORDERED: THIAMINE HCL 100 MG TABLET PO SCH (17:30)
[2020-08-18] MEDS ORDERED: FOLIC ACID 1 MG TABLET PO SCH (17:30)
[2020-08-18] MEDS ORDERED: CYANOCOBALAMIN (VITAMIN B-12) 1,000 MCG TABLET PO SCH (17:30)
[2020-08-18 17:46] LABS: CREATININE 2.9 mg/dL (0.5-1.5); POTASSIUM 3.8 mmol/L (3.5-5.1)
[2020-08-18 19:59] VITALS: BP 146/87
[2020-08-18] MEDS: TRAMADOL HCL 50 MG TABLET PO PRN (20:06)
[2020-08-18 23:09] VITALS: BP 139/74
[2020-08-19] MEDS: LACTATED RINGERS 1000ML 1,000 ML IV SCH ×2 (02:14→18:06)
[2020-08-19 03:15] VITALS: BP 128/75
[2020-08-19 05:55] LABS: HEMATOCRIT 37.6 % (42-54); MEAN CORPUSCULAR HGB CONC 32.4 g/dL (32.0-36.0); MEAN CORPUSCULAR VOLUME 86.2 fL (79-99); PLATELET COUNT (AUTO) 250 K/uL (130-400); RED BLOOD CELL COUNT(AUTO) 4.36 MIL/uL (4.50-6.20); RED CELL DISTRIBUTION WIDTH 14.7 % (11.0-15.5); WHITE BLOOD COUNT (AUTO) 6.4 K/uL (4.8-10.8)
[2020-08-19 06:02] LABS: CREATININE 1.5 mg/dL (0.5-1.5); MAGNESIUM 1.7 mg/dL (1.80-2.40); PHOSPHORUS 3.8 mg/dL (2.5-4.9); POTASSIUM 3.4 mmol/L (3.5-5.1)
[2020-08-19] MEDS: POTASSIUM CHLORIDE 10% ELIXIR 20 MEQ/15 ML UDCUP PO PRN (06:18)
[2020-08-19 06:23] LABS: BAND NEUTROPHILS % (MANUAL) 4 % (0-2); BASOPHILS % (MANUAL) 1 % (0-2); EOSINOPHILS % (MANUAL) 5 % (1-6); LYMPHOCYTES % (MANUAL) 28 % (22-44); MAN.DIFF COMMENT-IMPRESSION MANUAL DIFFERENTIAL; MONOCYTES % (MANUAL) 11 % (2-9); PLATELET MORPHOLOGY COMMENT ADEQUATE; REACTIVE LYMPHOCYTES 2 % (0-0); SEGMENTED NEUTROPHILS % 49 % (40-70)
[2020-08-19] MEDS: MAGNESIUM 2GM PREMIX 50ML 50 ML IV PRN (06:37)
[2020-08-19] MEDS: FAMOTIDINE/PF 20 MG/2 ML VIAL IV SCH (07:59)
[2020-08-19] MEDS: CYANOCOBALAMIN (VITAMIN B-12) 1,000 MCG TABLET PO SCH (07:59)
[2020-08-19] MEDS: DOCUSATE SODIUM 100 MG CAP PO SCH ×2 (07:59→20:23)
[2020-08-19] MEDS: FOLIC ACID 1 MG TABLET PO SCH (07:59)
[2020-08-19] MEDS: AMLODIPINE BESYLATE 5 MG TAB PO SCH (07:59)
[2020-08-19] MEDS: THIAMINE HCL 100 MG TABLET PO SCH (07:59)
[2020-08-19 08:00] VITALS: BP 113/60
[2020-08-19] MEDS: POTASSIUM CHLORIDE 20 MEQ ERTAB PO PRN (08:01)
[2020-08-19] MEDS: TAMSULOSIN HCL 0.4 MG CAP.ER.24H PO SCH (08:48)
[2020-08-19] MEDS: HEPARIN SODIUM 5000UNIT/ML 1ML VIAL SQ SCH ×2 (10:47→20:34)
[2020-08-19] MEDS: POLYETHYLENE GLYCOL 3350 17 GM POWD.PACK PO SCH (11:19)
[2020-08-19 13:20] VITALS: BP 133/68
[2020-08-19 18:56] VITALS: BP 148/64
[2020-08-19 19:07] VITALS: BP 156/75
[2020-08-19 22:57] VITALS: BP 147/66
[2020-08-20 03:29] VITALS: BP 151/68
[2020-08-20] MEDS: LACTATED RINGERS 1000ML 1,000 ML IV SCH ×2 (04:29→17:41)
[2020-08-20 05:32] LABS: BASOPHILS % (AUTO) 0.8 % (0.0-5.0); EOSINOPHILS % (AUTO) 4.2 % (0.0-8.0); HEMATOCRIT 34.4 % (42-54); LYMPHOCYTES % (AUTO) 22.5 % (21.0-51.0); MEAN CORPUSCULAR HEMOGLOBIN 27.9 pg (27.0-33.0); MEAN CORPUSCULAR HGB CONC 32.3 g/dL (32.0-36.0); MEAN CORPUSCULAR VOLUME 86.4 fL (79-99); MONOCYTES % (AUTO) 13.9 % (3.0-13.0); NEUTROPHILS % (AUTO) 58.2 % (40.0-77.0); PLATELET COUNT (AUTO) 244 K/uL (130-400); RED BLOOD CELL COUNT(AUTO) 3.98 MIL/uL (4.50-6.20); RED CELL DISTRIBUTION WIDTH 14.5 % (11.0-15.5)
[2020-08-20 05:40] LABS: CREATININE 0.9 mg/dL (0.5-1.5); MAGNESIUM 1.7 mg/dL (1.80-2.40); POTASSIUM 3.5 mmol/L (3.5-5.1)
[2020-08-20] MEDS: MAGNESIUM 2GM PREMIX 50ML 50 ML IV PRN (06:21)
[2020-08-20] MEDS: POTASSIUM CHLORIDE 10% ELIXIR 20 MEQ/15 ML UDCUP PO PRN (06:22)
[2020-08-20] MEDS ORDERED: POTASSIUM CHLORIDE 10% ELIXIR 20 MEQ/15 ML UDCUP PO SCH (08:30)
[2020-08-20] MEDS: AMLODIPINE BESYLATE 5 MG TAB PO SCH (09:10)
[2020-08-20] MEDS: TAMSULOSIN HCL 0.4 MG CAP.ER.24H PO SCH (09:10)
[2020-08-20] MEDS: CYANOCOBALAMIN (VITAMIN B-12) 1,000 MCG TABLET PO SCH (09:10)
[2020-08-20] MEDS: THIAMINE HCL 100 MG TABLET PO SCH (09:10)
[2020-08-20] MEDS: DOCUSATE SODIUM 100 MG CAP PO SCH ×2 (09:10→20:13)
[2020-08-20] MEDS: FAMOTIDINE/PF 20 MG/2 ML VIAL IV SCH (09:10)
[2020-08-20] MEDS: FOLIC ACID 1 MG TABLET PO SCH (09:10)
[2020-08-20] MEDS: POLYETHYLENE GLYCOL 3350 17 GM POWD.PACK PO SCH (09:11)
[2020-08-20 09:32] VITALS: BP 131/62
--- NOTE | 2020-08-20 10:00 | NUR ---
PATIENT FAMILY SPOKE TO PATIENTS SISTER, MEGAN ALEGRE, TO UPDATE ON PATIENT STATUS AND PLAN OF CARE.
--- NOTE | 2020-08-20 10:45 | NUR ---
ONLY TOLERATED WALKING IN ROOM SECONDARY TO REFUSED TO USE FACE MASK. Addendum: 08/20/20 at 1208 by BRYANT KLEIN PT Amended: Links added.
[2020-08-20] MEDS: HEPARIN SODIUM 5000UNIT/ML 1ML VIAL SQ SCH ×2 (10:46→22:45)
--- NOTE | 2020-08-20 12:00 | NUR ---
CM NOTE DEENA spoke to Ama with [facility]. Notified that patient will be returning with dutton catheter and dc instructions to follow up in one week with urologist for voiding trial. States they can accept patient back. CM updated nursing.
[2020-08-20 12:08] VITALS: BP 122/81
[2020-08-20 16:29] VITALS: BP 148/72
[2020-08-20 20:00] VITALS: BP 143/68
[2020-08-21] VITALS: BP 138/71
[2020-08-21 04:00] VITALS: BP 131/64
[2020-08-21 06:44] LABS: CREATININE 0.9 mg/dL (0.5-1.5); POTASSIUM 4.1 mmol/L (3.5-5.1)
[2020-08-21 08:00] VITALS: BP 127/68
[2020-08-21] MEDS: THIAMINE HCL 100 MG TABLET PO SCH (08:13)
[2020-08-21] MEDS: FAMOTIDINE/PF 20 MG/2 ML VIAL IV SCH (08:13)
[2020-08-21] MEDS: CYANOCOBALAMIN (VITAMIN B-12) 1,000 MCG TABLET PO SCH (08:13)
[2020-08-21] MEDS: TAMSULOSIN HCL 0.4 MG CAP.ER.24H PO SCH (08:13)
[2020-08-21] MEDS: AMLODIPINE BESYLATE 5 MG TAB PO SCH (08:13)
[2020-08-21] MEDS: POLYETHYLENE GLYCOL 3350 17 GM POWD.PACK PO SCH (08:13)
[2020-08-21] MEDS: FOLIC ACID 1 MG TABLET PO SCH (08:13)
[2020-08-21] MEDS: DOCUSATE SODIUM 100 MG CAP PO SCH (08:13)
--- NOTE | 2020-08-21 08:40 | NUR ---
REPORT GIVEN TO SUMANTH HANSON
--- NOTE | 2020-08-21 11:30 | NUR ---
DYSPHAGIA RE-EVAL COMPLETED. -S/S OF ASPIRATION. RECOMMEND PUREED, THIN LIQUIDS; PILLS CRUSHED WITH APPLESAUCE. Addendum: 08/21/20 at 1317 by GARY GUNN, [facility] Amended: Links added.
[2020-08-21 12:00] VITALS: BP 124/63
[2020-08-21] MEDS: HEPARIN SODIUM 5000UNIT/ML 1ML VIAL SQ SCH (14:29)
[2020-08-21] MEDS: LACTATED RINGERS 1000ML 1,000 ML IV SCH (14:31)
[2020-08-21 17:02] VITALS: BP 116/56
--- NOTE | 2020-08-21 20:04 | NUR ---
PER MD ORDERS DC'D PT TO [facility]. DISCHARGE INSTRUCTIONS GIVEN TO PT SISTER SULAIMAN ALEGRE AND TO KAITLIN WATERS CAREGIVER AT [facility]. CONSENT TO DC PT GIVEN BY SISTER SULAIMAN ALEGRE VIA TELEPHONE WITNESSED BY CAMELIA CADE RN. PT IV REMOVED, TIP INTACT. TELE REMOVED. DRESSING CHANGE INCISION SITE, MAU INTACT. PT DC'D WITH F/C ORDERED BY DR DEL VALLE. SULTANA DRAINING WELL, CLEAR YELLOW URINE NOTED. PT DENIES ANY PAIN. FOLLOW UPS DR GONSALVES PHONE NUMBERS PROVIDED, KAITLIN WAS TOLD THAT APPOINTMENTS NEEDED TO BE MADE, STATED UNDERSTANDING. PT WHEELED DOWN, [facility]
[2020-09-14] MEDS ORDERED: FOLI0.4T2 PO (08:42)
== END 2020-08-21 20:30 | disposition home or self-care (01) | DRG 351 ==
LOC: EDH 15:40 → EDHIP 15:41 → 3BH 22:01 → 3AH 08-10 06:39 → 3CH 08-21 08:30
PROVIDERS: ADMIT Internal Medicine; ATTEND Internal Medicine
PROC: 0YU50JZ Supplement Right Inguinal Region with Synthetic Substitute, Open Approach (ICD-10-PCS; principal; 2020-08-14 10:09)
DX: K40.30 Unilateral inguinal hernia, with obstruction, without gangrene, not specified as recurrent (principal); E44.0 Moderate protein-calorie malnutrition; E87.0 Hyperosmolality and hypernatremia; I31.3 Pericardial effusion (noninflammatory); N13.8 Other obstructive and reflux uropathy; N17.9 Acute kidney failure, unspecified; Z68.1 Body mass index [BMI] 19.9 or less, adult; Z20.828 Contact with and (suspected) exposure to other viral communicable diseases; E78.00 Pure hypercholesterolemia, unspecified; E78.5 Hyperlipidemia, unspecified; E86.9 Volume depletion, unspecified; I10 Essential (primary) hypertension; I71.4 Abdominal aortic aneurysm, without rupture; K57.90 Diverticulosis of intestine, part unspecified, without perforation or abscess without bleeding; M47.815 Spondylosis without myelopathy or radiculopathy, thoracolumbar region; N28.1 Cyst of kidney, acquired; N40.1 Benign prostatic hyperplasia with lower urinary tract symptoms; R33.8 Other retention of urine; N39.498 Other specified urinary incontinence; R62.7 Adult failure to thrive; M19.90 Unspecified osteoarthritis, unspecified site; F01.50 Vascular dementia, unspecified severity, without behavioral disturbance, psychotic disturbance, mood disturbance, and anxiety; R53.81 Other malaise; R00.0 Tachycardia, unspecified; E86.0 Dehydration; Z79.899 Other long term (current) drug therapy
CPT/HCPCS: 36415; 70450; 74176; 76770; 80048; 80053; 80061; 81001; 82150; 82550; 82570; 82607; 82746; 82948; 83690; 83735; 83874; 83880; 84100; 84145; 84300; 84443; 84484; 85025; 85027; 85610; 85730; 86592; 87040; 87088; 87426; 88302; 92610; 93005; 93306; 93356; 97039; G0378; J0330; J0690; J0696; J1100; J1644; J2001; J2250; J2405; J2704; J2710; J3010; J3475; J3490; J7030; J7120; U0003

== ENCOUNTER 2020-09-05 17:19 | Inpatient (IN) | payer OTHER ==
[~2020-09-05] VITALS: Ht 172.7 cm; Wt 53.0 kg
[2020-09-05 18:22] LABS: BASOPHILS % (AUTO) 0.6 % (0.0-5.0); EOSINOPHILS % (AUTO) 2.5 % (0.0-8.0); HEMATOCRIT 36.7 % (42-54); LYMPHOCYTES % (AUTO) 13.1 % (21.0-51.0); MEAN CORPUSCULAR HGB CONC 31.3 g/dL (32.0-36.0); MEAN CORPUSCULAR VOLUME 89.3 fL (79-99); MONOCYTES % (AUTO) 7.8 % (3.0-13.0); NEUTROPHILS % (AUTO) 75.7 % (40.0-77.0); PLATELET COUNT (AUTO) 255 K/uL (130-400); RED BLOOD CELL COUNT(AUTO) 4.11 MIL/uL (4.50-6.20); RED CELL DISTRIBUTION WIDTH 14.8 % (11.0-15.5); WHITE BLOOD COUNT (AUTO) 7.9 K/uL (4.8-10.8)
[2020-09-05 19:14] LABS: CARBON DIOXIDE 26 mmol/L (21-32); CHLORIDE 109 mmol/L (101-111); CREATININE 1.1 mg/dL (0.5-1.5); GLOMERULAR FILTR. RATE CALC 83 mL/min (>60); GLUCOSE,RANDOM 105 mg/dL (70-105); POTASSIUM 4.1 mmol/L (3.5-5.1); SODIUM SERUM 146 mmol/L (136-145); UREA NITROGEN, BLOOD 25 mg/dL (7-18)
[2020-09-05 19:20] LABS: ALANINE AMINOTRANSFERASE 10 U/L (12-78); ALBUMIN 2.4 g/dL (3.5-5.0); ALCOHOL, BLOOD < 3 mg/dL (0-10); ASPARTATE AMINOTRANSFERASE 16 U/L (10-37); BILIRUBIN,TOTAL 0.2 mg/dL (0.2-1.0); CREATINE KINASE, TOTAL 23 U/L (21-232)
[2020-09-05 20:45] LABS: ABG BASE EXCESS 1.1 mmol/L (-2.0-3.0); ABG HCO3 25.6 mmol/L (21.0-28.0); ABG PCO2 41 mmHg (35-48)
[2020-09-05] MEDS ORDERED: LORAZEPAM 2 MG/ML 1 ML VIAL ONE (20:53)
[2020-09-05] MEDS: DEXTROSE 5%-WATER 1,000 ML IV SCH (22:15)
[2020-09-05] MEDS ORDERED: [UNRECOGNIZED DRUG - OTHER] IV SCH (22:15)
[2020-09-05] MEDS ORDERED: THIAMINE HCL IV SCH (22:15)
[2020-09-05] MEDS ORDERED: FOLIC ACID IV SCH (22:15)
[2020-09-05] MEDS ORDERED: DIPHENHYDRAMINE HCL 25 MG CAPSULE PO PRN (22:15)
[2020-09-05] MEDS ORDERED: CHLORDIAZEPOXIDE HCL 25 MG CAP PO PRN ×2 (22:15)
[2020-09-05] MEDS ORDERED: ACETAMINOPHEN 325 MG TAB PO PRN ×2 (22:15)
[2020-09-05] MEDS ORDERED: NITROGLYCERIN 0.4 MG SL TAB SL PRN (22:15)
[2020-09-05] MEDS ORDERED: M V I IV SCH (22:15)
[2020-09-05] MEDS ORDERED: ONDANSETRON HCL 4 MG/2 ML VIAL IV PRN ×2 (22:15)
[2020-09-05] MEDS ORDERED: PHARMACY COMMUNICATION MISC PRN (22:15)
[2020-09-05] MEDS ORDERED: LORAZEPAM 2 MG/ML 1 ML VIAL IVP PRN ×3 (22:15)
[2020-09-05] MEDS ORDERED: LACTATED RINGERS 1000ML 1,000 ML IV ONE (22:26)
[2020-09-05] MEDS ORDERED: HALOPERIDOL LACTATE 5 MG/ML VIAL ONE (22:26)
[2020-09-05 22:41] LABS: INR 0.96 (0.85-1.15); PROTHROMBIN TIME 10.3 SEC (9.6-11.6)
[2020-09-05 22:42] LABS: PARTIAL THROMBOPLASTIN TIME 28.8 SEC (26.3-35.5)
[2020-09-05 22:43] LABS: CREATINE KINASE, TOTAL 29 U/L (21-232); MYOGLOBIN 43 ng/mL (10-92); TROPONIN I < 0.04 ng/mL (0.00-0.06)
[2020-09-05] MEDS: PANTOPRAZOLE SODIUM 40 MG TABLET.DR PO SCH (22:45)
[2020-09-05] MEDS ORDERED: PANTOPRAZOLE SODIUM 40 MG TABLET.DR ONE (23:20)
[2020-09-06] MEDS ORDERED: THIAMINE HCL 100 MG/ML 2ML VIAL ONE
[2020-09-06] MEDS ORDERED: M.V.I. IV [ADULT] 10 ML VIAL IV ONE (00:02)
[2020-09-06] MEDS ORDERED: FOLIC ACID 5 MG/ML 10 ML VIAL ONE (00:03)
[2020-09-06 03:35] LABS: APPEARANCE,URINE Cloudy (CLEAR); BILIRUBIN,URINE Negative (NEGATIVE); COLOR,URINE Yellow (YELLOW); GLUCOSE, URINE (UA) Negative (NEGATIVE); KETONES,URINE Trace mg/dL (NEGATIVE); LEUKOCYTE ESTERASE ,URINE Large (NEGATIVE); NITRATE,URINE Positive (NEGATIVE); OCCULT BLOOD,URINE Large (NEGATIVE); PH,URINE 5.5 (5.0-8.0); PROTEIN,URINE POS 1+ mg/dL (NEGATIVE)
[2020-09-06 03:43] LABS: AMPHET/METH SCREEN,URINE NEGATIVE (NEGATIVE); BARBITURATE SCREEN, URINE NEGATIVE (NEGATIVE); BENZODIAZEPINES SCREEN,URINE NEGATIVE (NEGATIVE); CANNABINOID SCREEN,URINE NEGATIVE (NEGATIVE); COCAINE SCREEN,URINE NEGATIVE (NEGATIVE); OPIATE SCREEN,URINE NEGATIVE (NEGATIVE); PHENCYCLIDINE SCREEN,URINE NEGATIVE (NEGATIVE)
[2020-09-06] MEDS ORDERED: LEVETIRACETAM 500 MG TABLET PO SCH (03:45)
[2020-09-06 03:47] LABS: BACTERIA,URINE Few /HPF (None Seen); SQUAMOUS EPITHELIAL CELL,UR Rare /HPF (0-2); WBC,URINE 26-50 /HPF (0-1)
[2020-09-06] MEDS ORDERED: MORPHINE SULFATE 2 MG/ML 1ML SYG ONE (04:15)
[2020-09-06] MEDS ORDERED: LEVETIRACETAM 500 MG TABLET PO ONE ×3 (05:07→09:11)
[2020-09-06 05:20] LABS: HEMATOCRIT 35.1 % (42-54); MEAN CORPUSCULAR HEMOGLOBIN 27.8 pg (27.0-33.0); MEAN CORPUSCULAR HGB CONC 31.6 g/dL (32.0-36.0); MEAN CORPUSCULAR VOLUME 87.8 fL (79-99); PLATELET COUNT (AUTO) 343 K/uL (130-400); RED CELL DISTRIBUTION WIDTH 14.8 % (11.0-15.5)
[2020-09-06 05:55] LABS: BAND NEUTROPHILS % (MANUAL) 6 % (0-2); BASOPHILS % (MANUAL) 1 % (0-2); EOSINOPHILS % (MANUAL) 4 % (1-6); LYMPHOCYTES % (MANUAL) 11 % (22-44); MAN.DIFF COMMENT-IMPRESSION MANUAL DIFFERENTIAL; MONOCYTES % (MANUAL) 7 % (2-9); PLATELET MORPHOLOGY COMMENT ADEQUATE; SEGMENTED NEUTROPHILS % 71 % (40-70)
[2020-09-06 06:10] LABS: ALBUMIN 2.3 g/dL (3.5-5.0); BILIRUBIN,TOTAL 0.3 mg/dL (0.2-1.0); MAGNESIUM 1.9 mg/dL (1.80-2.40); PHOSPHORUS 2.7 mg/dL (2.5-4.9); POTASSIUM 3.8 mmol/L (3.5-5.1); TOTAL PROTEIN, SERUM 7.3 g/dL (6.0-8.3)
[2020-09-06] MEDS: DEXTROSE 5%-WATER 1,000 ML IV SCH ×2 (06:15→14:15)
[2020-09-06] MEDS ORDERED: CEFTRIAXONE SODIUM 1 GM ONE (06:38)
[2020-09-06] MEDS ORDERED: GADODIAMIDE 10 MMOL/20 ML VIAL IV ONE (08:06)
[2020-09-06] MEDS ORDERED: ENOXAPARIN SODIUM 30 MG/0.3 ML SQ ONE (08:39)
[2020-09-06] MEDS ORDERED: PANTOPRAZOLE SODIUM 40 MG TABLET.DR ONE (08:39)
[2020-09-06] MEDS: PANTOPRAZOLE SODIUM 40 MG TABLET.DR PO SCH (09:00)
[2020-09-06] MEDS ORDERED: CHLORDIAZEPOXIDE HCL 25 MG CAP ONE ×3 (09:11→17:59)
[2020-09-06] MEDS ORDERED: DEXTROSE 5%-WATER 500 ML IV ONE (14:14)
[2020-09-06] MEDS ORDERED: LORAZEPAM 2 MG/ML 1 ML VIAL ONE (17:10)
[2020-09-06] MEDS ORDERED: PHARMACY COMMUNICATION MISC PRN (17:45)
[2020-09-06] MEDS ORDERED: LORAZEPAM 2 MG/ML 1 ML VIAL IVP PRN (17:45)
[2020-09-06] MEDS ORDERED: CHLORDIAZEPOXIDE HCL 25 MG CAP PO PRN (17:45)
[2020-09-07] VITALS (7 sets, daily range): BP systolic 121–149; BP diastolic 66–87
--- NOTE | 2020-09-07 00:05 | NUR ---
Nursing Note-Admission Pt arrived from ER with banana bag infusing. ER nurse Sophie MUÑOZ stated this is the second bag given, along with night medications. Room set up for seizure precautions.
[2020-09-07] MEDS ORDERED: LORAZEPAM 2 MG/ML 1 ML VIAL IVP PRN (02:30)
[2020-09-07] MEDS: CEFTRIAXONE SODIUM 1 GM IVP SCH (05:09)
[2020-09-07 05:32] LABS: BASOPHILS % (AUTO) 0.8 % (0.0-5.0); EOSINOPHILS % (AUTO) 6.3 % (0.0-8.0); HEMATOCRIT 41.8 % (42-54); MEAN CORPUSCULAR HEMOGLOBIN 28.1 pg (27.0-33.0); MEAN CORPUSCULAR HGB CONC 32.1 g/dL (32.0-36.0); MEAN CORPUSCULAR VOLUME 87.6 fL (79-99); MONOCYTES % (AUTO) 12.5 % (3.0-13.0); NEUTROPHILS % (AUTO) 56.2 % (40.0-77.0); PLATELET COUNT (AUTO) 127 K/uL (130-400); RED BLOOD CELL COUNT(AUTO) 4.77 MIL/uL (4.50-6.20); RED CELL DISTRIBUTION WIDTH 14.6 % (11.0-15.5)
[2020-09-07 05:50] LABS: CREATININE 0.7 mg/dL (0.5-1.5); POTASSIUM 5.4 mmol/L (3.5-5.1)
--- NOTE | 2020-09-07 06:41 | NUR ---
Nursing Note-EEG Spoke with Respiratory about EEG. They said they are aware but don't know when they will do the EEG today
[2020-09-07] MEDS: CHLORDIAZEPOXIDE HCL 25 MG CAP PO SCH ×3 (09:00→20:43)
[2020-09-07] MEDS: PANTOPRAZOLE SODIUM 40 MG TABLET.DR PO SCH (09:00)
[2020-09-07] MEDS: ENOXAPARIN SODIUM 30 MG/0.3 ML SQ SCH ×2 (10:08→10:24)
[2020-09-07] MEDS: LEVETIRACETAM 750 MG in SODIUM CHLORIDE 0.9% 100 ML IV SCH ×4 (10:21→20:32)
--- NOTE | 2020-09-07 11:42 | NUR ---
CHART CHECK COMPLETED Pt WITH PREVIOUS ADMISSION WITH MODIFIED DIET RECOMMENDED BY THIS STILL OPERATOR GIN. Pt PREVIOUSLY ON PUREED TEXTURES. CURRENTLY, Pt IS NOT FOLLOWING COMMANDS. Pt WITH POOR SECRETION MANAGEMENT REQUIRING FREQUENT ORAL SUCTION AND DEEP SUCTION BY RT THIS AM. STILL OPERATOR GIN COORDINATED WITH NURSE HICKMAN AND REQUESTED NPO STATUS AT THIS TIME. IF Pt WITH NUTRITION CONCERNS PLEASE CONSIDER NG TUBE FEEDINGS VS IV AT THIS TIME. Addendum: 09/08/20 at 1149 by GARY GUNN [facility] Amended: Links added.
[2020-09-07] MEDS ORDERED: COMPOUND IV MISC 1 EACH IVSOLN MISC PRN (12:00)
--- NOTE | 2020-09-07 15:33 | NUR ---
RD NOTIFICATION Pt admitted due to seizures. As per EMR pt is a current ETOH user with a hx of dementia, delirium, failure to thrive and protein calorie malnutrition. Pt has a BMI of 17.9, low for age. Pt has evidence of moderate-severe muscle/fat wasting. Pt is at risk for moderate - severe malnutrition. Pt was previously admitted with a WT of 53.932, BMI of 18.1. Pt has had unintentional wt loss in 1 month. Previous admission pt was on a heart healthy puree diet with an inadequate PO intake. As per HEALTH EDUCATION ASSISTANT pt has had a 0% PO intake for breakfast and lunch 09/07/20 RD RECOMMENDATION: When medically feasible, supplement B1, folic acid, B complex, Speech therapy consult Pt may need altered nutrition means due to prolonged inadequate PO intake. Advance diet as per WEDDING DESIGNER recommendations. LABS: K 5.4, BG 118, AMMONIA <3, CRP 42.90, ALB 2.3, B12 776, PROCAL <0.005, Addendum: 09/07/20 at [address] Amended: Links added.
--- NOTE | 2020-09-07 16:46 | NUR ---
[facility] CM spoke to pt's sister Lian Rose discussed dc plans. Pt is well known to CM from past admission. Semi-independent prior to admission, lives at [facility], film processing supervisor Ama Flowers . Facility has equipments for residence if needed. Sister agreeable for [facility] to return to [facility] once stable. DC plan back to [facility] once stable, facility able to provide transportation once ready. CM to continue to follow up. Addendum: 09/07/20 at 1649 by PORFIRIO CROUCH LVN Amended: Links added.
[2020-09-07] MEDS: LACTATED RINGERS 1000ML IV SCH (17:00)
[2020-09-08 03:24] VITALS: BP 137/73
[2020-09-08] MEDS: CEFTRIAXONE SODIUM 1 GM IVP SCH (05:31)
[2020-09-08] MEDS: LACTATED RINGERS 1000ML IV SCH (05:50)
[2020-09-08 08:00] VITALS: BP 130/70
--- NOTE | 2020-09-08 08:30 | NUR ---
DYSPHAGIA EVALUATION COMPLETED. -S/S OF ASPIRATION. RECOMMEND MECHANICAL SOFT/CHOPPED, THIN LIQUIDS; PILLS WHOLE WITH LIQUIDS. Addendum: 09/10/20 at 1002 by GARY GUNN, [facility] [address] Amended: Links added.
[2020-09-08] MEDS ORDERED: CHLORDIAZEPOXIDE HCL 25 MG CAP PO PRN (08:45)
[2020-09-08] MEDS: LEVETIRACETAM 750 MG in SODIUM CHLORIDE 0.9% 100 ML IV SCH (10:50)
[2020-09-08] MEDS: ENOXAPARIN SODIUM 30 MG/0.3 ML SQ SCH (10:51)
[2020-09-08] MEDS: PANTOPRAZOLE SODIUM 40 MG TABLET.DR PO SCH (10:51)
[2020-09-08 12:00] VITALS: BP 131/73
[2020-09-08 16:00] VITALS: BP 148/78
[2020-09-08 19:00] VITALS: BP 127/71
[2020-09-08] MEDS: LEVETIRACETAM 250 MG TABLET PO SCH (20:00)
[2020-09-09] VITALS: BP 125/69
[2020-09-09 04:00] VITALS: BP 134/70
[2020-09-09 07:47] VITALS: BP 136/62
[2020-09-09] MEDS ORDERED: LEVOFLOXACIN 500 MG TABLET PO SCH (09:00)
[2020-09-09] MEDS: LEVOFLOXACIN 750 MG TABLET PO SCH (09:29)
[2020-09-09] MEDS: LEVETIRACETAM 250 MG TABLET PO SCH ×2 (09:29→21:15)
[2020-09-09] MEDS: PANTOPRAZOLE SODIUM 40 MG TABLET.DR PO SCH (09:29)
[2020-09-09] MEDS: ENOXAPARIN SODIUM 30 MG/0.3 ML SQ SCH (09:29)
[2020-09-09 11:38] VITALS: BP 118/57
[2020-09-09 16:00] VITALS: BP 139/81
[2020-09-09 19:00] VITALS: BP 139/75
[2020-09-10] VITALS (7 sets, daily range): BP systolic 125–146; BP diastolic 63–88
[2020-09-10] MEDS: ENOXAPARIN SODIUM 30 MG/0.3 ML SQ SCH (09:00)
[2020-09-10] MEDS: LEVETIRACETAM 250 MG TABLET PO SCH ×2 (09:00→20:12)
[2020-09-10] MEDS: PANTOPRAZOLE SODIUM 40 MG TABLET.DR PO SCH (09:00)
[2020-09-10] MEDS: LEVOFLOXACIN 750 MG TABLET PO SCH (09:00)
[2020-09-10 11:47] LABS: BASOPHILS % (AUTO) 0.6 % (0.0-5.0); LYMPHOCYTES % (AUTO) 25.7 % (21.0-51.0); MEAN CORPUSCULAR HEMOGLOBIN 27.7 pg (27.0-33.0); MEAN CORPUSCULAR HGB CONC 32.1 g/dL (32.0-36.0); MEAN CORPUSCULAR VOLUME 86.4 fL (79-99); MONOCYTES % (AUTO) 13.7 % (3.0-13.0); NEUTROPHILS % (AUTO) 55.8 % (40.0-77.0); PLATELET COUNT (AUTO) 337 K/uL (130-400); RED CELL DISTRIBUTION WIDTH 14.4 % (11.0-15.5); WHITE BLOOD COUNT (AUTO) 4.7 K/uL (4.8-10.8)
[2020-09-10 12:05] LABS: CREATININE 0.8 mg/dL (0.5-1.5); POTASSIUM 3.4 mmol/L (3.5-5.1)
[2020-09-10 12:10] LABS: ALBUMIN 2.3 g/dL (3.5-5.0); BILIRUBIN,TOTAL 0.4 mg/dL (0.2-1.0); TOTAL PROTEIN, SERUM 7.2 g/dL (6.0-8.3)
[2020-09-10] MEDS: DEXTROSE 5%-WATER 1,000 ML IV SCH (23:18)
[2020-09-11] VITALS: BP 131/76
[2020-09-11 04:00] VITALS: BP 135/76
[2020-09-11] MEDS: DEXTROSE 5%-WATER 1,000 ML IV SCH ×3 (06:26→22:15)
[2020-09-11 07:30] VITALS: BP_SYST 115; BP_SYST 133; BP_DIAS 72; BP_DIAS 73
--- NOTE | 2020-09-11 08:30 | NUR ---
AM ASSESSMENT PT LAYING IN BED, HOB ELEVATED 30 DEGREES, RESTING. SEIZURE PRECAUTIONS IN PLACE. ORIENTED TO SELF ONLY. NO SOB. NO DISTRESS NOTED. NO PAIN OR DISCOMFORT. TELE: SR. NO N/V AND/OR DIARRHEA. MALNOURISHED. CURRENTLY NPO. POSS PEG TUBE PLCT BY GI. D5W INFUSING @ 125 ML/HR. BEDREST. BED @ LOWEST LEVEL. SIDE RAILS UP X 3. INSTRUCTED TO CALL FOR ASSISTANCE. CALL NANCY W/IN REACH.
--- NOTE | 2020-09-11 09:07 | NUR ---
GI CONSULT Cheryle HADDAD NP CONTACTED DR DAVILA FOR GI CONS & POSS PEG TUBE PLCT. PER DR LOLA MD CURRENTLY IN VACATION THEREFORE NOT IN CALL.
--- NOTE | 2020-09-11 09:36 | NUR ---
GI CONSULT GI OFFICE CALLED. VOICEMAIL LEFT FOR CONSULT.
--- NOTE | 2020-09-11 09:36 | NUR ---
FOLLOW UP COMPLETED. Pt WITH <25% P.O. RECOMMENDATIONS FROM ALTERNATE MEANS OF NUTRITION/HYDRATION TO SUPPLEMENT P.O. BY SENIOR QA ANALYST. LOG CHIPPER COORDINATED WITH JANES GALVEZ TO CONTINUE PLEASURE FEEDS OF MECHANICAL SOFT, THIN LIQUIDS. LOG CHIPPER WILL CONTINUE TO FOLLOW Pt. Addendum: 09/11/20 at 0940 by GARY GUNN, [facility] Amended: Links added.
[2020-09-11 11:00] VITALS: BP 127/66
[2020-09-11] MEDS: PANTOPRAZOLE SODIUM 40 MG TABLET.DR PO SCH (12:22)
[2020-09-11] MEDS: LEVETIRACETAM 250 MG TABLET PO SCH ×2 (12:22→19:17)
[2020-09-11] MEDS: LEVOFLOXACIN 750 MG TABLET PO SCH (12:23)
[2020-09-11] MEDS: ENOXAPARIN SODIUM 30 MG/0.3 ML SQ SCH (12:23)
[2020-09-11] MEDS ORDERED: POTASSIUM CHLORIDE 20MEQ/100ML 100 ML IV PRN (13:45)
[2020-09-11] MEDS ORDERED: LIDOCAINE HCL-MPF 1% 2ML VIAL IV PRN (13:45)
[2020-09-11] MEDS ORDERED: POTASSIUM CHLORIDE 20 MEQ ERTAB PO PRN (14:00)
--- NOTE | 2020-09-11 14:55 | NUR ---
CM Note: POC CM spoke to Ama Flowers w/[facility] . CM asked if facility will be able to assist pt with a new peg. Per Ama they will not be able to assist patient and will not be able to accept patient back with new peg tube. CM spoke to Robyn w/[place] , verified pt does not have service connection with SNF, unless patient is ready for Hospice, but verbalized pt has Medicare Part A&B, will need to verify. Made aware pt not ready for Hospice. Per Robyn if pt will need a short term placement temporarily [facility] to [facility], then they can try to get it approve with their medical coordinator pesticide use. Made aware pt will need more of a ocean transportation intermediary assistance w/peg tube. Informed financial counselor, awaiting verification for Medicare Part A&B. Plan for now possible short term vs long-term. CM to continue to follow up.
--- NOTE | 2020-09-11 15:01 | NUR ---
CM Note: POC update As per Nasra w/Financial counselor pt does have Medicare Part A&B. Will call sister Lian TRONCOSO to give update. Plan is for SNF once peg placed if [place] agrees. PT ELIGIBLE W/MCR: Subscriber First Name VINCENZO Subscriber Last Name SOCORRO Subscriber MBI Number [id number] PART A&B EFF: 03/22/2007
[2020-09-11] MEDS: POTASSIUM CHLORIDE 10% ELIXIR 20 MEQ/15 ML UDCUP PO PRN ×2 (15:11→16:55)
[2020-09-11 16:00] VITALS: BP 148/72
--- NOTE | 2020-09-11 16:18 | NUR ---
CM Note: Update POC CM spoke to Jessica HEADER DOCK, as per Jessica cancelled peg per Dr Harris, plan is for pt to return to [facility]. CM spoke to Nancy Flowers made aware of cancelled peg, dc f/c, verbalized will be able to take pt back, will have transport van available for pt once ready, primary nurse to call Ama once pt ready to DC. Primary nurse Shu MUÑOZ aware. CM to continue to follow up.
--- NOTE | 2020-09-11 17:08 | NUR ---
DISCHARGE CALL PLACED TO KAITLIN, , STAFF FROM [facility]. KAITLIN NOTIFIED PT TO BE DISCHARGED HOME TODAY. KAITLIN TO COLORER PT FROM HOSPITAL LATER THIS EVENING.
[2020-09-11] MEDS ORDERED: LEVE750T4 PO (17:25)
[2020-09-11] MEDS ORDERED: LEVO750T46 PO (17:25)
[2020-09-11 20:00] VITALS: BP 129/77
--- NOTE | 2020-09-11 20:53 | NUR ---
DISCHARGE PAGED KAITLIN FROM [facility]. NO ANSWER. LEFT VOICEMAIL. PENDING TO BE CALLED BACK.
--- NOTE | 2020-09-11 21:57 | NUR ---
DISCHARGE REPAGED KAITLIN FROM [facility]. NO ANSWER CALL WENT TO VOICEMAIL. VOICEMAIL LEFT. PENDING TO BE CALLED BACK
== END 2020-09-11 23:00 | disposition home or self-care (01) | DRG 100 ==
LOC: EDH 17:19 → EDHIP 22:01 → 4AH 09-06 23:40
PROVIDERS: ADMIT Internal Medicine; ATTEND Internal Medicine
PROC: 4A10X4Z Monitoring of Central Nervous Electrical Activity, External Approach (ICD-10-PCS; principal; 2020-09-08)
DX: G40.909 Epilepsy, unspecified, not intractable, without status epilepticus (principal); E43 Unspecified severe protein-calorie malnutrition; T83.518A Infection and inflammatory reaction due to other urinary catheter, initial encounter; N39.0 Urinary tract infection, site not specified; E87.0 Hyperosmolality and hypernatremia; Z68.1 Body mass index [BMI] 19.9 or less, adult; E87.1 Hypo-osmolality and hyponatremia; F05 Delirium due to known physiological condition; Y84.6 Urinary catheterization as the cause of abnormal reaction of the patient, or of later complication, without mention of misadventure at the time of the procedure; I10 Essential (primary) hypertension; F41.9 Anxiety disorder, unspecified; F03.90 Unspecified dementia, unspecified severity, without behavioral disturbance, psychotic disturbance, mood disturbance, and anxiety; J20.9 Acute bronchitis, unspecified; E86.0 Dehydration; F10.10 Alcohol abuse, uncomplicated; E78.5 Hyperlipidemia, unspecified; E11.9 Type 2 diabetes mellitus without complications; M19.90 Unspecified osteoarthritis, unspecified site; Z20.828 Contact with and (suspected) exposure to other viral communicable diseases
CPT/HCPCS: 36415; 36600; 70450; 70553; 71045; 80048; 80053; 80061; 80305; 81001; 82140; 82550; 82607; 82803; 82948; 83735; 83874; 84100; 84145; 84425; 84484; 85025; 85610; 85651; 85730; 86140; 87040; 87077; 87088; 87186; 87426; 87449; 92610; 93005; 95819; A9579; G0378; J0696; J1630; J1650; J1953; J2060; J3411; J3490; J7042; J7060; J7070; J7120; U0003

== ENCOUNTER 2020-09-12 15:11 | Inpatient (IN) | payer OTHER ==
[~2020-09-12] VITALS: Ht 165.1 cm; Wt 57.0 kg
[~2020-09-12 15:11] MED LIST: LEVE750T4 PO; LEVO750T46 PO
[2020-09-12 17:01] LABS: BASOPHILS % (AUTO) 0.2 % (0.0-5.0); HEMATOCRIT 40.2 % (42-54); LYMPHOCYTES % (AUTO) 3.8 % (21.0-51.0); MEAN CORPUSCULAR HEMOGLOBIN 27.9 pg (27.0-33.0); MEAN CORPUSCULAR HGB CONC 32.6 g/dL (32.0-36.0); MEAN CORPUSCULAR VOLUME 85.5 fL (79-99); MONOCYTES % (AUTO) 3.4 % (3.0-13.0); NEUTROPHILS % (AUTO) 92.1 % (40.0-77.0); PLATELET COUNT (AUTO) 368 K/uL (130-400); RED CELL DISTRIBUTION WIDTH 14.7 % (11.0-15.5); WHITE BLOOD COUNT (AUTO) 22.9 K/uL (4.8-10.8)
[2020-09-12 17:31] LABS: CARBON DIOXIDE 28 mmol/L (21-32); CHLORIDE 97 mmol/L (101-111); GLOMERULAR FILTR. RATE CALC 42 mL/min (>60); GLUCOSE,RANDOM 109 mg/dL (70-105); SODIUM SERUM 135 mmol/L (136-145); UREA NITROGEN, BLOOD 15 mg/dL (7-18)
[2020-09-12 17:35] LABS: ALANINE AMINOTRANSFERASE 12 U/L (12-78); ALBUMIN 2.6 g/dL (3.5-5.0); ASPARTATE AMINOTRANSFERASE 21 U/L (10-37); BILIRUBIN,TOTAL 0.4 mg/dL (0.2-1.0); CREATINE KINASE, TOTAL 67 U/L (21-232); TOTAL PROTEIN, SERUM 8.2 g/dL (6.0-8.3)
[2020-09-12 17:36] LABS: LIPASE < 50 U/L (114-286)
[2020-09-12 19:14] LABS: APPEARANCE,URINE Clear (CLEAR); BILIRUBIN,URINE Negative (NEGATIVE); COLOR,URINE Yellow (YELLOW); GLUCOSE, URINE (UA) Negative (NEGATIVE); KETONES,URINE Negative (NEGATIVE); LEUKOCYTE ESTERASE ,URINE Trace (NEGATIVE); NITRATE,URINE Negative (NEGATIVE); OCCULT BLOOD,URINE Negative (NEGATIVE); PH,URINE 6.5 (5.0-8.0); PROTEIN,URINE Negative (NEGATIVE); UROBILINOGEN,URINE 0.2 mg/dL (0.2-1.0)
[2020-09-12 19:21] LABS: AMPHET/METH SCREEN,URINE NEGATIVE (NEGATIVE); BARBITURATE SCREEN, URINE NEGATIVE (NEGATIVE); BENZODIAZEPINES SCREEN,URINE POSITIVE (NEGATIVE); CANNABINOID SCREEN,URINE NEGATIVE (NEGATIVE); COCAINE SCREEN,URINE NEGATIVE (NEGATIVE); OPIATE SCREEN,URINE NEGATIVE (NEGATIVE); PHENCYCLIDINE SCREEN,URINE NEGATIVE (NEGATIVE)
[2020-09-12 19:42] LABS: BACTERIA,URINE Rare /HPF (None Seen); MUCUS,URINE None Seen LPF (None Seen); RBC,URINE 0-1 /HPF (0-1); SQUAMOUS EPITHELIAL CELL,UR Rare /HPF (0-2)
[2020-09-12] MEDS ORDERED: ZOSYN 3.375GM+NS 50ML 50 ML IV ONE (19:45)
[2020-09-12] MEDS ORDERED: ONDANSETRON 4MG INJ IV PRN (20:00)
[2020-09-12] MEDS: FAMOTIDINE 20MG VIAL IV SCH (21:00)
[2020-09-12] MEDS: PHARMACY COMMUNICATION MISC SCH (22:00)
[2020-09-12] MEDS ORDERED: FAMOTIDINE 20MG VIAL IV ONE (22:08)
[2020-09-12 23:55] VITALS: BP 100/53
[2020-09-13 04:00] VITALS: BP 127/60
[2020-09-13] MEDS: PHARMACY COMMUNICATION MISC SCH ×4 (04:00→22:00)
[2020-09-13 05:37] LABS: BASOPHILS % (AUTO) 0.3 % (0.0-5.0); EOSINOPHILS % (AUTO) 0.1 % (0.0-8.0); HEMATOCRIT 33.9 % (42-54); LYMPHOCYTES % (AUTO) 5.7 % (21.0-51.0); MEAN CORPUSCULAR HEMOGLOBIN 27.4 pg (27.0-33.0); MEAN CORPUSCULAR HGB CONC 32.2 g/dL (32.0-36.0); MEAN CORPUSCULAR VOLUME 85.2 fL (79-99); MONOCYTES % (AUTO) 6.6 % (3.0-13.0); NEUTROPHILS % (AUTO) 86.7 % (40.0-77.0); PLATELET COUNT (AUTO) 305 K/uL (130-400); RED BLOOD CELL COUNT(AUTO) 3.98 MIL/uL (4.50-6.20); RED CELL DISTRIBUTION WIDTH 14.9 % (11.0-15.5); WHITE BLOOD COUNT (AUTO) 19.6 K/uL (4.8-10.8)
[2020-09-13 05:56] LABS: CREATININE 1.6 mg/dL (0.5-1.5)
[2020-09-13 05:59] LABS: ALBUMIN 2.2 g/dL (3.5-5.0); BILIRUBIN,TOTAL 0.4 mg/dL (0.2-1.0); TOTAL PROTEIN, SERUM 7.1 g/dL (6.0-8.3)
[2020-09-13] MEDS: 0.9%NACL 1000ML 1,000 ML IV SCH ×3 (06:28→22:40)
[2020-09-13 07:46] VITALS: BP 156/74
[2020-09-13] MEDS: ZOSYN 3.375GM+NS 50ML 50 ML IV SCH ×2 (10:01→20:05)
[2020-09-13 11:24] VITALS: BP 143/63
[2020-09-13 15:16] VITALS: BP 155/76
[2020-09-13 19:00] VITALS: BP 158/71
[2020-09-13] MEDS: FAMOTIDINE 20MG VIAL IV SCH (20:06)
[2020-09-13 23:57] VITALS: BP 146/65
[2020-09-14 04:00] VITALS: BP 132/69
[2020-09-14] MEDS: PHARMACY COMMUNICATION MISC SCH ×4 (04:00→22:00)
[2020-09-14 04:19] LABS: BASOPHILS % (AUTO) 0.6 % (0.0-5.0); EOSINOPHILS % (AUTO) 0.1 % (0.0-8.0); HEMATOCRIT 31.2 % (42-54); LYMPHOCYTES % (AUTO) 7.9 % (21.0-51.0); MEAN CORPUSCULAR HEMOGLOBIN 28.2 pg (27.0-33.0); MEAN CORPUSCULAR HGB CONC 32.7 g/dL (32.0-36.0); MEAN CORPUSCULAR VOLUME 86.2 fL (79-99); MONOCYTES % (AUTO) 8.2 % (3.0-13.0); NEUTROPHILS % (AUTO) 82.7 % (40.0-77.0); PLATELET COUNT (AUTO) 312 K/uL (130-400); RED BLOOD CELL COUNT(AUTO) 3.62 MIL/uL (4.50-6.20); WHITE BLOOD COUNT (AUTO) 14.4 K/uL (4.8-10.8)
[2020-09-14 04:50] LABS: BILIRUBIN,TOTAL 0.5 mg/dL (0.2-1.0); CREATININE 0.9 mg/dL (0.5-1.5); POTASSIUM 3.5 mmol/L (3.5-5.1); TOTAL PROTEIN, SERUM 6.9 g/dL (6.0-8.3)
[2020-09-14 08:00] VITALS: BP 192/84
[2020-09-14] MEDS ORDERED: AMLO-257 PO (08:42)
[2020-09-14] MEDS ORDERED: TAMS-1 PO (08:42)
[2020-09-14] MEDS ORDERED: THIA100T91 PO (08:42)
[2020-09-14] MEDS ORDERED: CYAN250010 PO (08:42)
[2020-09-14] MEDS ORDERED: FOLI0.4T6 PO (08:42)
[2020-09-14] MEDS: ZOSYN 3.375GM+NS 50ML 50 ML IV SCH ×2 (08:43→21:19)
[2020-09-14 12:00] VITALS: BP 190/85
[2020-09-14] MEDS: 0.9%NACL 1000ML 1,000 ML IV SCH (12:00)
[2020-09-14] MEDS ORDERED: LORAZEPAM 2 MG/ML 1 ML VIAL IVP PRN (17:30)
[2020-09-14 19:03] VITALS: BP 164/77
[2020-09-14] MEDS: FAMOTIDINE 20MG VIAL IV SCH (21:19)
[2020-09-14 23:04] VITALS: BP 195/92
[2020-09-15] MEDS: 0.9%NACL 1000ML 1,000 ML IV SCH ×2 (01:20→06:50)
[2020-09-15 02:01] VITALS: BP 157/96
[2020-09-15 02:57] VITALS: BP 178/79
[2020-09-15] MEDS: PHARMACY COMMUNICATION MISC SCH ×4 (03:30→20:02)
[2020-09-15 05:30] VITALS: BP 168/81
[2020-09-15] MEDS ORDERED: METOPROLOL TARTRATE 1 MG/ML 5ML VIAL IV SCH (05:45)
[2020-09-15] MEDS ORDERED: HYDRALAZINE 20MG/ML VIAL IV ONE (05:45)
[2020-09-15] MEDS ORDERED: METOPROLOL TARTRATE 1 MG/ML 5ML VIAL IV ONE (05:55)
[2020-09-15 06:26] VITALS: BP 166/75
[2020-09-15 06:54] LABS: BASOPHILS % (AUTO) 0.5 % (0.0-5.0); EOSINOPHILS % (AUTO) 1.4 % (0.0-8.0); HEMATOCRIT 33.7 % (42-54); LYMPHOCYTES % (AUTO) 9.4 % (21.0-51.0); MEAN CORPUSCULAR HEMOGLOBIN 27.3 pg (27.0-33.0); MEAN CORPUSCULAR HGB CONC 31.8 g/dL (32.0-36.0); MONOCYTES % (AUTO) 11.2 % (3.0-13.0); PLATELET COUNT (AUTO) 348 K/uL (130-400); RED BLOOD CELL COUNT(AUTO) 3.92 MIL/uL (4.50-6.20); RED CELL DISTRIBUTION WIDTH 15.1 % (11.0-15.5); WHITE BLOOD COUNT (AUTO) 11.1 K/uL (4.8-10.8)
[2020-09-15 07:36] LABS: ALBUMIN 1.9 g/dL (3.5-5.0); BILIRUBIN,TOTAL 0.5 mg/dL (0.2-1.0); CREATININE 0.6 mg/dL (0.5-1.5); TOTAL PROTEIN, SERUM 7.2 g/dL (6.0-8.3)
[2020-09-15] MEDS ORDERED: DEXTROSE 50%-WATER 50 ML DISP.SYRIN IV PRN (07:45)
[2020-09-15] MEDS ORDERED: GLUCAGON 1MG KIT 1 MG ML IM PRN (07:45)
[2020-09-15] MEDS: ZOSYN 3.375GM+NS 50ML 50 ML IV SCH ×2 (09:44→20:21)
[2020-09-15] MEDS: DEXTROSE 5%-WATER 1,000 ML IV SCH (13:52)
[2020-09-15 19:28] VITALS: BP 155/76
[2020-09-15] MEDS: FAMOTIDINE 20MG VIAL IV SCH (20:21)
[2020-09-15] MEDS: CHLORHEXIDINE GLUCONATE 473 ML MOUTHWASH MM SCH (20:29)
[2020-09-15 23:34] VITALS: BP 146/62
[2020-09-16] MEDS: DEXTROSE 5%-WATER 1,000 ML IV SCH ×2 (02:05→15:15)
[2020-09-16 03:23] VITALS: BP 140/63
[2020-09-16 05:33] LABS: BASOPHILS % (AUTO) 0.5 % (0.0-5.0); EOSINOPHILS % (AUTO) 1.8 % (0.0-8.0); LYMPHOCYTES % (AUTO) 10.9 % (21.0-51.0); MEAN CORPUSCULAR HEMOGLOBIN 27.9 pg (27.0-33.0); MEAN CORPUSCULAR HGB CONC 32.9 g/dL (32.0-36.0); MEAN CORPUSCULAR VOLUME 84.7 fL (79-99); NEUTROPHILS % (AUTO) 72.5 % (40.0-77.0); PLATELET COUNT (AUTO) 335 K/uL (130-400); RED BLOOD CELL COUNT(AUTO) 3.66 MIL/uL (4.50-6.20); RED CELL DISTRIBUTION WIDTH 14.5 % (11.0-15.5); WHITE BLOOD COUNT (AUTO) 8.7 K/uL (4.8-10.8)
[2020-09-16 06:09] LABS: ALBUMIN 1.8 g/dL (3.5-5.0); BILIRUBIN,TOTAL 0.5 mg/dL (0.2-1.0); CREATININE 0.7 mg/dL (0.5-1.5); POTASSIUM 3.8 mmol/L (3.5-5.1)
[2020-09-16] MEDS: PHARMACY COMMUNICATION MISC SCH ×4 (07:59→19:26)
[2020-09-16 08:18] VITALS: BP 138/65
[2020-09-16] MEDS: CHLORHEXIDINE GLUCONATE 473 ML MOUTHWASH MM SCH ×2 (08:20→19:43)
[2020-09-16] MEDS: ZOSYN 3.375GM+NS 50ML 50 ML IV SCH ×2 (08:20→19:42)
[2020-09-16 11:41] VITALS: BP 155/71
[2020-09-16 15:50] VITALS: BP 170/73
[2020-09-16 19:16] VITALS: BP 164/73
[2020-09-16] MEDS: FAMOTIDINE 20MG VIAL IV SCH (19:42)
[2020-09-16 23:49] VITALS: BP 138/68
[2020-09-17] MEDS: DEXTROSE 5%-WATER 1,000 ML IV SCH ×2 (03:11→17:48)
[2020-09-17 04:00] VITALS: BP 143/69
[2020-09-17 05:50] LABS: BASOPHILS % (AUTO) 0.5 % (0.0-5.0); LYMPHOCYTES % (AUTO) 17.1 % (21.0-51.0); MEAN CORPUSCULAR HEMOGLOBIN 27.4 pg (27.0-33.0); MEAN CORPUSCULAR HGB CONC 32.6 g/dL (32.0-36.0); MEAN CORPUSCULAR VOLUME 84.1 fL (79-99); MONOCYTES % (AUTO) 15.1 % (3.0-13.0); PLATELET COUNT (AUTO) 382 K/uL (130-400); RED BLOOD CELL COUNT(AUTO) 4.16 MIL/uL (4.50-6.20); RED CELL DISTRIBUTION WIDTH 14.5 % (11.0-15.5); WHITE BLOOD COUNT (AUTO) 6.4 K/uL (4.8-10.8)
[2020-09-17 06:17] LABS: ALBUMIN 1.8 g/dL (3.5-5.0); BILIRUBIN,TOTAL 0.4 mg/dL (0.2-1.0); CREATININE 0.8 mg/dL (0.5-1.5); POTASSIUM 3.5 mmol/L (3.5-5.1); TOTAL PROTEIN, SERUM 7.2 g/dL (6.0-8.3)
[2020-09-17] MEDS: ZOSYN 3.375GM+NS 50ML 50 ML IV SCH ×2 (07:47→19:53)
[2020-09-17] MEDS: CHLORHEXIDINE GLUCONATE 473 ML MOUTHWASH MM SCH ×2 (07:48→19:53)
[2020-09-17 08:10] VITALS: BP 137/67
[2020-09-17] MEDS: PHARMACY COMMUNICATION MISC SCH (10:00)
[2020-09-17 12:55] VITALS: BP 154/78
[2020-09-17 16:49] VITALS: BP 165/76
[2020-09-17 19:00] VITALS: BP 157/76
[2020-09-17] MEDS: FAMOTIDINE 20MG VIAL IV SCH (19:53)
[2020-09-17 23:00] VITALS: BP 138/70
[2020-09-18 04:18] VITALS: BP 136/74
[2020-09-18 08:00] VITALS: BP_SYST 113; BP_SYST 124; BP_DIAS 58; BP_DIAS 65
[2020-09-18] MEDS: METOPROLOL SUCCINATE 50 MG TAB.SR.24H PO SCH (10:17)
[2020-09-18] MEDS: ZOSYN 3.375GM+NS 50ML 50 ML IV SCH ×2 (10:17→20:59)
[2020-09-18] MEDS: DEXTROSE 5%-WATER 1,000 ML IV SCH ×2 (10:34→20:45)
[2020-09-18] MEDS: CHLORHEXIDINE GLUCONATE 473 ML MOUTHWASH MM SCH ×2 (10:38→20:59)
[2020-09-18 12:06] VITALS: BP 148/67
[2020-09-18 16:00] VITALS: BP 154/86
[2020-09-18 20:41] VITALS: BP 148/78
[2020-09-18] MEDS: FAMOTIDINE 20MG VIAL IV SCH (20:59)
[2020-09-18 23:47] VITALS: BP 144/77
[2020-09-19] VITALS (18 sets, daily range): BP systolic 110–167; BP diastolic 60–78
[2020-09-19 05:22] LABS: INR 1.03 (0.85-1.15)
[2020-09-19] MEDS ORDERED: PROPOFOL 10 MG/ML 20ML VIAL IV ONE ×2 (07:44)
[2020-09-19] MEDS ORDERED: SUCCINYLCHOLINE 200MG/10ML SYR ONE (07:49)
[2020-09-19] MEDS ORDERED: PHENYLEPHRINE HCL 10 MG/ML 1ML VIAL IV ONE (07:53)
[2020-09-19] MEDS ORDERED: CEFAZOLIN SODIUM 1 GM VIAL ONE (08:04)
[2020-09-19] MEDS ORDERED: 0.9%NACL 1000ML 1,000 ML IV ONE (08:06)
[2020-09-19] MEDS: DEXTROSE 5%-WATER 1,000 ML IV SCH ×2 (12:04→20:08)
[2020-09-19] MEDS: METOPROLOL SUCCINATE 50 MG TAB.SR.24H PO SCH (12:35)
[2020-09-19] MEDS: ZOSYN 3.375GM+NS 50ML 50 ML IV SCH ×2 (12:36→20:08)
[2020-09-19] MEDS: CHLORHEXIDINE GLUCONATE 473 ML MOUTHWASH MM SCH ×2 (12:57→20:08)
[2020-09-19] MEDS: FAMOTIDINE 20MG VIAL IV SCH (20:08)
[2020-09-19] MEDS: LEVETIRACETAM 100 MG/ML 5 ML UDCUP GT SCH (20:13)
[2020-09-20] VITALS: BP 122/60
[2020-09-20 04:56] VITALS: BP 134/69
[2020-09-20 06:13] LABS: BASOPHILS % (AUTO) 0.4 % (0.0-5.0); EOSINOPHILS % (AUTO) 1.2 % (0.0-8.0); HEMATOCRIT 31.4 % (42-54); LYMPHOCYTES % (AUTO) 8.9 % (21.0-51.0); MEAN CORPUSCULAR HEMOGLOBIN 27.3 pg (27.0-33.0); MEAN CORPUSCULAR HGB CONC 32.5 g/dL (32.0-36.0); MONOCYTES % (AUTO) 10.9 % (3.0-13.0); NEUTROPHILS % (AUTO) 78.1 % (40.0-77.0); PLATELET COUNT (AUTO) 449 K/uL (130-400); RED BLOOD CELL COUNT(AUTO) 3.74 MIL/uL (4.50-6.20); RED CELL DISTRIBUTION WIDTH 14.4 % (11.0-15.5); WHITE BLOOD COUNT (AUTO) 10.3 K/uL (4.8-10.8)
[2020-09-20 06:31] LABS: CREATININE 0.7 mg/dL (0.5-1.5); POTASSIUM 3.5 mmol/L (3.5-5.1)
[2020-09-20 08:00] VITALS: BP 138/68
[2020-09-20] MEDS ORDERED: 0.9%NACL 1000ML 1,000 ML IV SCH (08:45)
[2020-09-20] MEDS: METOPROLOL SUCCINATE 50 MG TAB.SR.24H PO SCH (09:53)
[2020-09-20] MEDS: FOLIC ACID 1 MG TABLET PO SCH (09:53)
[2020-09-20] MEDS: ZOSYN 3.375GM+NS 50ML 50 ML IV SCH ×2 (09:53→20:36)
[2020-09-20] MEDS: AMLODIPINE 5 MG TAB PO SCH (09:53)
[2020-09-20] MEDS: THIAMINE HCL 100 MG TABLET PO SCH (09:53)
[2020-09-20] MEDS: TAMSULOSIN HCL 0.4 MG CAP.ER.24H PO SCH (09:53)
[2020-09-20] MEDS: CYANOCOBALAMIN (VITAMIN B-12) 1,000 MCG TABLET PO SCH (09:53)
[2020-09-20] MEDS: CHLORHEXIDINE GLUCONATE 473 ML MOUTHWASH MM SCH ×2 (09:55→20:37)
[2020-09-20 11:00] VITALS: BP 157/72
[2020-09-20] MEDS: LEVETIRACETAM 100 MG/ML 5 ML UDCUP GT SCH ×2 (11:28→20:36)
[2020-09-20 16:00] VITALS: BP 163/20
[2020-09-20 20:26] VITALS: BP 158/79
[2020-09-20] MEDS: FAMOTIDINE 20MG VIAL IV SCH (20:36)
[2020-09-20] MEDS: DEXTROSE 5%-WATER 1,000 ML IV SCH (21:01)
[2020-09-21] VITALS (7 sets, daily range): BP systolic 129–157; BP diastolic 57–77
[2020-09-21] MEDS: DEXTROSE 5%-WATER 1,000 ML IV SCH ×3 (01:08→23:58)
[2020-09-21] MEDS: FOLIC ACID 1 MG TABLET PO SCH (10:56)
[2020-09-21] MEDS: ZOSYN 3.375GM+NS 50ML 50 ML IV SCH ×2 (10:56→20:07)
[2020-09-21] MEDS: METOPROLOL SUCCINATE 50 MG TAB.SR.24H PO SCH (10:56)
[2020-09-21] MEDS: TAMSULOSIN HCL 0.4 MG CAP.ER.24H PO SCH (10:56)
[2020-09-21] MEDS: AMLODIPINE 5 MG TAB PO SCH (10:56)
[2020-09-21] MEDS: CYANOCOBALAMIN (VITAMIN B-12) 1,000 MCG TABLET PO SCH (10:56)
[2020-09-21] MEDS: THIAMINE HCL 100 MG TABLET PO SCH (10:56)
[2020-09-21] MEDS: LEVETIRACETAM 100 MG/ML 5 ML UDCUP GT SCH ×2 (10:57→20:08)
[2020-09-21] MEDS: FAMOTIDINE 20MG VIAL IV SCH (20:08)
[2020-09-22] MEDS: DEXTROSE 5%-WATER 1,000 ML IV SCH (03:52)
[2020-09-22 03:59] LABS: BASOPHILS % (AUTO) 0.5 % (0.0-5.0); EOSINOPHILS % (AUTO) 3.2 % (0.0-8.0); HEMATOCRIT 29.5 % (42-54); LYMPHOCYTES % (AUTO) 8.8 % (21.0-51.0); MEAN CORPUSCULAR HEMOGLOBIN 28.2 pg (27.0-33.0); MEAN CORPUSCULAR HGB CONC 33.9 g/dL (32.0-36.0); MEAN CORPUSCULAR VOLUME 83.3 fL (79-99); MONOCYTES % (AUTO) 11.3 % (3.0-13.0); NEUTROPHILS % (AUTO) 75.7 % (40.0-77.0); PLATELET COUNT (AUTO) 448 K/uL (130-400); RED BLOOD CELL COUNT(AUTO) 3.54 MIL/uL (4.50-6.20); RED CELL DISTRIBUTION WIDTH 14.1 % (11.0-15.5); WHITE BLOOD COUNT (AUTO) 10.2 K/uL (4.8-10.8)
[2020-09-22 04:14] LABS: CREATININE 0.7 mg/dL (0.5-1.5); MAGNESIUM 1.7 mg/dL (1.80-2.40); PHOSPHORUS 2.1 mg/dL (2.5-4.9); POTASSIUM 3.6 mmol/L (3.5-5.1)
[2020-09-22] MEDS ORDERED: MAGNESIUM 2GM PREMIX 50ML 50 ML IV SCH (04:30)
[2020-09-22] MEDS: 0.9%NACL 1000ML 1,000 ML IV SCH ×2 (04:30→21:10)
[2020-09-22] MEDS ORDERED: POTASSIUM CHLORIDE 10% ELIXIR 20 MEQ/15 ML UDCUP PO PRN (04:30)
[2020-09-22] MEDS ORDERED: POTASSIUM CHLORIDE 20MEQ/100ML 100 ML IV PRN (04:30)
[2020-09-22] MEDS ORDERED: KCL 20 MEQ ERTAB PO PRN (04:30)
[2020-09-22] MEDS ORDERED: LIDOCAINE HCL-MPF 1% 2ML VIAL IV PRN (04:30)
[2020-09-22] MEDS ORDERED: POTASSIUM CHLORIDE 10% ELIXIR 20 MEQ/15 ML UDCUP ONE (05:30)
[2020-09-22] MEDS ORDERED: 0.9%NACL 1000ML 1,000 ML IV ONE (05:30)
[2020-09-22] MEDS ORDERED: MAGNESIUM 2GM PREMIX 50ML 50 ML IV ONE (05:30)
[2020-09-22 06:45] VITALS: BP 152/84
[2020-09-22 08:00] VITALS: BP 141/68
[2020-09-22] MEDS: METOPROLOL SUCCINATE 50 MG TAB.SR.24H PO SCH (08:23)
[2020-09-22] MEDS: TAMSULOSIN HCL 0.4 MG CAP.ER.24H PO SCH (08:23)
[2020-09-22] MEDS: CYANOCOBALAMIN (VITAMIN B-12) 1,000 MCG TABLET PO SCH (08:23)
[2020-09-22] MEDS: FOLIC ACID 1 MG TABLET PO SCH (08:23)
[2020-09-22] MEDS: AMLODIPINE 5 MG TAB PO SCH (08:23)
[2020-09-22] MEDS: THIAMINE HCL 100 MG TABLET PO SCH (08:23)
[2020-09-22] MEDS: ZOSYN 3.375GM+NS 50ML 50 ML IV SCH ×2 (10:11→21:32)
[2020-09-22] MEDS: LEVETIRACETAM 100 MG/ML 5 ML UDCUP GT SCH ×2 (10:31→21:32)
[2020-09-22 12:00] VITALS: BP 145/71
[2020-09-22 16:00] VITALS: BP 112/59
[2020-09-22 19:15] VITALS: BP 107/64
[2020-09-22] MEDS: FAMOTIDINE 20MG VIAL IV SCH (21:32)
[2020-09-22 23:07] VITALS: BP 105/47
[2020-09-23 03:33] VITALS: BP 106/54
[2020-09-23] MEDS: 0.9%NACL 1000ML 1,000 ML IV SCH (04:16)
[2020-09-23 06:20] LABS: HEMATOCRIT 26.8 % (42-54); MEAN CORPUSCULAR HEMOGLOBIN 27.6 pg (27.0-33.0); MEAN CORPUSCULAR HGB CONC 32.8 g/dL (32.0-36.0); RED BLOOD CELL COUNT(AUTO) 3.19 MIL/uL (4.50-6.20); RED CELL DISTRIBUTION WIDTH 14.3 % (11.0-15.5); WHITE BLOOD COUNT (AUTO) 11.1 K/uL (4.8-10.8)
[2020-09-23 06:39] LABS: CREATININE 0.7 mg/dL (0.5-1.5); MAGNESIUM 1.7 mg/dL (1.80-2.40)
[2020-09-23 08:00] VITALS: BP 115/59
[2020-09-23] MEDS: METOPROLOL SUCCINATE 50 MG TAB.SR.24H PO SCH (09:00)
[2020-09-23] MEDS: ZOSYN 3.375GM+NS 50ML 50 ML IV SCH ×2 (11:00→19:21)
[2020-09-23] MEDS: LEVETIRACETAM 100 MG/ML 5 ML UDCUP GT SCH ×2 (11:02→19:21)
[2020-09-23] MEDS: TAMSULOSIN HCL 0.4 MG CAP.ER.24H PO SCH (11:03)
[2020-09-23] MEDS: AMLODIPINE 5 MG TAB PO SCH (11:03)
[2020-09-23] MEDS: FOLIC ACID 1 MG TABLET PO SCH (11:04)
[2020-09-23] MEDS: THIAMINE HCL 100 MG TABLET PO SCH (11:04)
[2020-09-23] MEDS: CYANOCOBALAMIN (VITAMIN B-12) 1,000 MCG TABLET PO SCH (11:04)
[2020-09-23 12:00] VITALS: BP 115/50
[2020-09-23 16:00] VITALS: BP 121/71
[2020-09-23] MEDS: FAMOTIDINE 20MG VIAL IV SCH (19:21)
[2020-09-23 20:00] VITALS: BP 130/52
[2020-09-24 00:44] VITALS: BP 122/54
[2020-09-24 04:00] VITALS: BP 115/57
[2020-09-24] MEDS: 0.9%NACL 1000ML 1,000 ML IV SCH ×2 (05:30→20:21)
[2020-09-24 06:45] LABS: BASOPHILS % (AUTO) 0.8 % (0.0-5.0); EOSINOPHILS % (AUTO) 3.3 % (0.0-8.0); HEMATOCRIT 26.9 % (42-54); LYMPHOCYTES % (AUTO) 11.6 % (21.0-51.0); MEAN CORPUSCULAR HEMOGLOBIN 27.2 pg (27.0-33.0); MEAN CORPUSCULAR HGB CONC 33.1 g/dL (32.0-36.0); MEAN CORPUSCULAR VOLUME 82.3 fL (79-99); MONOCYTES % (AUTO) 11.9 % (3.0-13.0); NEUTROPHILS % (AUTO) 71.8 % (40.0-77.0); PLATELET COUNT (AUTO) 526 K/uL (130-400); RED BLOOD CELL COUNT(AUTO) 3.27 MIL/uL (4.50-6.20); RED CELL DISTRIBUTION WIDTH 14.3 % (11.0-15.5)
[2020-09-24 07:26] LABS: ALBUMIN 1.2 g/dL (3.5-5.0); BILIRUBIN,TOTAL 0.2 mg/dL (0.2-1.0); CREATININE 0.6 mg/dL (0.5-1.5)
[2020-09-24] MEDS: THIAMINE HCL 100 MG TABLET PO SCH (09:15)
[2020-09-24] MEDS: ZOSYN 3.375GM+NS 50ML 50 ML IV SCH ×2 (09:15→20:21)
[2020-09-24] MEDS: CYANOCOBALAMIN (VITAMIN B-12) 1,000 MCG TABLET PO SCH (09:15)
[2020-09-24] MEDS: LEVETIRACETAM 100 MG/ML 5 ML UDCUP GT SCH ×2 (09:15→21:31)
[2020-09-24] MEDS: METOPROLOL SUCCINATE 50 MG TAB.SR.24H PO SCH (09:15)
[2020-09-24] MEDS: AMLODIPINE 5 MG TAB PO SCH (09:16)
[2020-09-24] MEDS: TAMSULOSIN HCL 0.4 MG CAP.ER.24H PO SCH (09:16)
[2020-09-24] MEDS: FOLIC ACID 1 MG TABLET PO SCH (09:16)
[2020-09-24 12:00] VITALS: BP 110/69
[2020-09-24 14:13] VITALS: BP 117/65
[2020-09-24 16:00] VITALS: BP 148/71
[2020-09-24] MEDS ORDERED: ENOXAPARIN SODIUM 40 MG/0.4 ML SYRINGE SQ SCH (19:45)
[2020-09-24 20:10] VITALS: BP 115/48
[2020-09-24] MEDS: FAMOTIDINE 20MG VIAL IV SCH (20:21)
[2020-09-25] VITALS (7 sets, daily range): BP systolic 112–137; BP diastolic 47–69
[2020-09-25 05:42] LABS: BASOPHILS % (AUTO) 0.6 % (0.0-5.0); EOSINOPHILS % (AUTO) 3.6 % (0.0-8.0); HEMATOCRIT 27.5 % (42-54); LYMPHOCYTES % (AUTO) 12.2 % (21.0-51.0); MEAN CORPUSCULAR HEMOGLOBIN 27.1 pg (27.0-33.0); MEAN CORPUSCULAR HGB CONC 32.4 g/dL (32.0-36.0); MEAN CORPUSCULAR VOLUME 83.8 fL (79-99); MONOCYTES % (AUTO) 12.3 % (3.0-13.0); NEUTROPHILS % (AUTO) 70.6 % (40.0-77.0); PLATELET COUNT (AUTO) 570 K/uL (130-400); RED BLOOD CELL COUNT(AUTO) 3.28 MIL/uL (4.50-6.20); RED CELL DISTRIBUTION WIDTH 14.6 % (11.0-15.5); WHITE BLOOD COUNT (AUTO) 8.3 K/uL (4.8-10.8)
[2020-09-25 06:05] LABS: ALBUMIN 1.3 g/dL (3.5-5.0); BILIRUBIN,TOTAL 0.2 mg/dL (0.2-1.0); CREATININE 0.7 mg/dL (0.5-1.5); POTASSIUM 4.3 mmol/L (3.5-5.1); TOTAL PROTEIN, SERUM 6.3 g/dL (6.0-8.3)
[2020-09-25] MEDS: LEVETIRACETAM 100 MG/ML 5 ML UDCUP GT SCH ×2 (08:59→21:30)
[2020-09-25] MEDS: CYANOCOBALAMIN (VITAMIN B-12) 1,000 MCG TABLET PO SCH (08:59)
[2020-09-25] MEDS: AMLODIPINE 5 MG TAB PO SCH (08:59)
[2020-09-25] MEDS: FOLIC ACID 1 MG TABLET PO SCH (08:59)
[2020-09-25] MEDS: TAMSULOSIN HCL 0.4 MG CAP.ER.24H PO SCH (08:59)
[2020-09-25] MEDS: THIAMINE HCL 100 MG TABLET PO SCH (08:59)
[2020-09-25] MEDS: METOPROLOL SUCCINATE 50 MG TAB.SR.24H PO SCH (09:00)
[2020-09-25] MEDS: ZOSYN 3.375GM+NS 50ML 50 ML IV SCH (09:00)
[2020-09-25] MEDS: ENOXAPARIN SODIUM 40 MG/0.4 ML SYRINGE SQ SCH (09:00)
[2020-09-25] MEDS: 0.9%NACL 1000ML 1,000 ML IV SCH (15:43)
[2020-09-25] MEDS: FAMOTIDINE 20MG VIAL IV SCH (19:51)
[2020-09-26 03:39] VITALS: BP 151/85
[2020-09-26 04:30] LABS: BASOPHILS % (AUTO) 0.7 % (0.0-5.0); EOSINOPHILS % (AUTO) 4.5 % (0.0-8.0); HEMATOCRIT 30.7 % (42-54); LYMPHOCYTES % (AUTO) 12.4 % (21.0-51.0); MEAN CORPUSCULAR HEMOGLOBIN 27.7 pg (27.0-33.0); MEAN CORPUSCULAR HGB CONC 32.9 g/dL (32.0-36.0); MEAN CORPUSCULAR VOLUME 84.3 fL (79-99); MONOCYTES % (AUTO) 11.9 % (3.0-13.0); NEUTROPHILS % (AUTO) 69.8 % (40.0-77.0); PLATELET COUNT (AUTO) 574 K/uL (130-400); RED BLOOD CELL COUNT(AUTO) 3.64 MIL/uL (4.50-6.20); RED CELL DISTRIBUTION WIDTH 14.6 % (11.0-15.5); WHITE BLOOD COUNT (AUTO) 8.5 K/uL (4.8-10.8)
[2020-09-26 04:49] LABS: ALBUMIN 1.3 g/dL (3.5-5.0); BILIRUBIN,TOTAL 0.2 mg/dL (0.2-1.0); CREATININE 0.6 mg/dL (0.5-1.5); POTASSIUM 4.4 mmol/L (3.5-5.1); TOTAL PROTEIN, SERUM 6.5 g/dL (6.0-8.3)
[2020-09-26 08:19] VITALS: BP 118/61
[2020-09-26] MEDS: LEVETIRACETAM 100 MG/ML 5 ML UDCUP GT SCH ×2 (11:14→21:06)
[2020-09-26] MEDS: CYANOCOBALAMIN (VITAMIN B-12) 1,000 MCG TABLET PO SCH (11:14)
[2020-09-26] MEDS: THIAMINE HCL 100 MG TABLET PO SCH (11:14)
[2020-09-26] MEDS: TAMSULOSIN HCL 0.4 MG CAP.ER.24H PO SCH (11:15)
[2020-09-26] MEDS: METOPROLOL SUCCINATE 50 MG TAB.SR.24H PO SCH (11:15)
[2020-09-26] MEDS: AMLODIPINE 5 MG TAB PO SCH (11:15)
[2020-09-26] MEDS: FOLIC ACID 1 MG TABLET PO SCH (11:15)
[2020-09-26] MEDS: 0.9%NACL 1000ML 1,000 ML IV SCH (11:16)
[2020-09-26] MEDS: ENOXAPARIN SODIUM 40 MG/0.4 ML SYRINGE SQ SCH (11:19)
[2020-09-26 11:41] VITALS: BP 122/55
[2020-09-26 16:16] VITALS: BP 133/54
[2020-09-26 20:00] VITALS: BP 116/43
[2020-09-26] MEDS: FAMOTIDINE 20MG VIAL IV SCH (21:06)
[2020-09-27] VITALS: BP 123/62
[2020-09-27] MEDS: 0.9%NACL 1000ML 1,000 ML IV SCH ×3 (03:50→21:57)
[2020-09-27 03:54] LABS: BASOPHILS % (AUTO) 0.8 % (0.0-5.0); EOSINOPHILS % (AUTO) 2.7 % (0.0-8.0); HEMATOCRIT 27.4 % (42-54); LYMPHOCYTES % (AUTO) 14.4 % (21.0-51.0); MEAN CORPUSCULAR HEMOGLOBIN 27.2 pg (27.0-33.0); MEAN CORPUSCULAR HGB CONC 32.5 g/dL (32.0-36.0); MEAN CORPUSCULAR VOLUME 83.8 fL (79-99); MONOCYTES % (AUTO) 11.6 % (3.0-13.0); NEUTROPHILS % (AUTO) 69.5 % (40.0-77.0); PLATELET COUNT (AUTO) 626 K/uL (130-400); RED BLOOD CELL COUNT(AUTO) 3.27 MIL/uL (4.50-6.20); RED CELL DISTRIBUTION WIDTH 14.6 % (11.0-15.5); WHITE BLOOD COUNT (AUTO) 9.2 K/uL (4.8-10.8)
[2020-09-27 04:00] VITALS: BP 143/90
[2020-09-27 04:14] LABS: ALBUMIN 1.3 g/dL (3.5-5.0); BILIRUBIN,TOTAL 0.3 mg/dL (0.2-1.0); CREATININE 0.6 mg/dL (0.5-1.5); POTASSIUM 4.5 mmol/L (3.5-5.1); TOTAL PROTEIN, SERUM 6.3 g/dL (6.0-8.3)
[2020-09-27 07:30] VITALS: BP 141/56
[2020-09-27] MEDS: LEVETIRACETAM 100 MG/ML 5 ML UDCUP GT SCH ×2 (10:27→21:40)
[2020-09-27] MEDS: TAMSULOSIN HCL 0.4 MG CAP.ER.24H PO SCH (10:28)
[2020-09-27] MEDS: AMLODIPINE 5 MG TAB PO SCH (10:28)
[2020-09-27] MEDS: CYANOCOBALAMIN (VITAMIN B-12) 1,000 MCG TABLET PO SCH (10:28)
[2020-09-27] MEDS: METOPROLOL SUCCINATE 50 MG TAB.SR.24H PO SCH (10:28)
[2020-09-27] MEDS: FOLIC ACID 1 MG TABLET PO SCH (10:28)
[2020-09-27] MEDS: THIAMINE HCL 100 MG TABLET PO SCH (10:28)
[2020-09-27] MEDS: ENOXAPARIN SODIUM 40 MG/0.4 ML SYRINGE SQ SCH (10:29)
[2020-09-27 11:00] VITALS: BP 122/49
[2020-09-27 16:00] VITALS: BP 133/55
[2020-09-27 21:12] VITALS: BP 148/77
[2020-09-27] MEDS: FAMOTIDINE 20MG VIAL IV SCH (21:41)
[2020-09-28 00:06] VITALS: BP 154/68
[2020-09-28 04:02] LABS: BASOPHILS % (AUTO) 0.6 % (0.0-5.0); EOSINOPHILS % (AUTO) 2.8 % (0.0-8.0); HEMATOCRIT 26.3 % (42-54); LYMPHOCYTES % (AUTO) 12.1 % (21.0-51.0); MEAN CORPUSCULAR HEMOGLOBIN 27.3 pg (27.0-33.0); MEAN CORPUSCULAR HGB CONC 32.7 g/dL (32.0-36.0); MEAN CORPUSCULAR VOLUME 83.5 fL (79-99); MONOCYTES % (AUTO) 11.7 % (3.0-13.0); NEUTROPHILS % (AUTO) 71.7 % (40.0-77.0); PLATELET COUNT (AUTO) 651 K/uL (130-400); RED BLOOD CELL COUNT(AUTO) 3.15 MIL/uL (4.50-6.20); RED CELL DISTRIBUTION WIDTH 14.6 % (11.0-15.5); WHITE BLOOD COUNT (AUTO) 8.2 K/uL (4.8-10.8)
[2020-09-28 04:04] VITALS: BP 98/56
[2020-09-28 04:14] LABS: CREATININE 0.6 mg/dL (0.5-1.5); POTASSIUM 4.4 mmol/L (3.5-5.1)
[2020-09-28 08:00] VITALS: BP 120/72
[2020-09-28] MEDS: CYANOCOBALAMIN (VITAMIN B-12) 1,000 MCG TABLET PO SCH (10:01)
[2020-09-28] MEDS: TAMSULOSIN HCL 0.4 MG CAP.ER.24H PO SCH (10:02)
[2020-09-28] MEDS: ENOXAPARIN SODIUM 40 MG/0.4 ML SYRINGE SQ SCH (10:02)
[2020-09-28] MEDS: METOPROLOL SUCCINATE 50 MG TAB.SR.24H PO SCH (10:02)
[2020-09-28] MEDS: LEVETIRACETAM 100 MG/ML 5 ML UDCUP GT SCH ×2 (10:02→21:33)
[2020-09-28] MEDS: FOLIC ACID 1 MG TABLET PO SCH (10:02)
[2020-09-28] MEDS: AMLODIPINE 5 MG TAB PO SCH (10:02)
[2020-09-28] MEDS: THIAMINE HCL 100 MG TABLET PO SCH (10:03)
[2020-09-28] MEDS: 0.9%NACL 1000ML 1,000 ML IV SCH (10:30)
[2020-09-28 11:00] VITALS: BP 122/63
[2020-09-28 16:00] VITALS: BP 127/47
[2020-09-28 18:55] LABS: APPEARANCE,URINE Clear (CLEAR); BILIRUBIN,URINE Negative (NEGATIVE); COLOR,URINE Yellow (YELLOW); GLUCOSE, URINE (UA) Negative (NEGATIVE); KETONES,URINE Negative (NEGATIVE); LEUKOCYTE ESTERASE ,URINE Negative (NEGATIVE); NITRATE,URINE Negative (NEGATIVE); OCCULT BLOOD,URINE Negative (NEGATIVE); PROTEIN,URINE Trace mg/dL (NEGATIVE)
[2020-09-28 19:21] LABS: BACTERIA,URINE Rare /HPF (None Seen); RBC,URINE 0-1 /HPF (0-1); SQUAMOUS EPITHELIAL CELL,UR Rare /HPF (0-2); WBC,URINE 0-1 /HPF (0-1)
[2020-09-28 20:08] VITALS: BP 112/47
[2020-09-28] MEDS: FAMOTIDINE 20MG VIAL IV SCH (21:33)
[2020-09-29 00:08] VITALS: BP 115/47
[2020-09-29 04:12] VITALS: BP 100/46
[2020-09-29 08:03] VITALS: BP 110/44
[2020-09-29 08:11] LABS: BASOPHILS % (AUTO) 0.5 % (0.0-5.0); EOSINOPHILS % (AUTO) 0.6 % (0.0-8.0); HEMATOCRIT 26.4 % (42-54); LYMPHOCYTES % (AUTO) 10.2 % (21.0-51.0); MEAN CORPUSCULAR HEMOGLOBIN 26.9 pg (27.0-33.0); MEAN CORPUSCULAR HGB CONC 32.2 g/dL (32.0-36.0); MEAN CORPUSCULAR VOLUME 83.5 fL (79-99); MONOCYTES % (AUTO) 8.7 % (3.0-13.0); NEUTROPHILS % (AUTO) 79.4 % (40.0-77.0); PLATELET COUNT (AUTO) 608 K/uL (130-400); RED BLOOD CELL COUNT(AUTO) 3.16 MIL/uL (4.50-6.20); RED CELL DISTRIBUTION WIDTH 14.8 % (11.0-15.5); WHITE BLOOD COUNT (AUTO) 10.5 K/uL (4.8-10.8)
[2020-09-29] MEDS ORDERED: CEFTRIAXONE 1G VIAL IVP SCH (08:15)
[2020-09-29] MEDS ORDERED: AZITHROMYCIN 500MG+NS 250ML 250 ML IV SCH (08:15)
[2020-09-29 08:23] LABS: CREATININE 0.6 mg/dL (0.5-1.5); POTASSIUM 4.1 mmol/L (3.5-5.1)
[2020-09-29] MEDS ORDERED: LEVOFLOXACIN 500 MG/D5W 100 ML 100 ML IV SCH (09:00)
[2020-09-29] MEDS ORDERED: ACETAMINOPHEN 650 MG/20.3 ML UDCUP ONE (09:22)
[2020-09-29] MEDS: METOPROLOL TARTRATE 25 MG TAB PO SCH ×2 (09:34→22:51)
[2020-09-29] MEDS: TAMSULOSIN HCL 0.4 MG CAP.ER.24H PO SCH (09:34)
[2020-09-29] MEDS: CYANOCOBALAMIN (VITAMIN B-12) 1,000 MCG TABLET PO SCH (09:34)
[2020-09-29] MEDS: FOLIC ACID 1 MG TABLET PO SCH (09:34)
[2020-09-29] MEDS: THIAMINE HCL 100 MG TABLET PO SCH (09:35)
[2020-09-29] MEDS: AMLODIPINE 5 MG TAB PO SCH (09:35)
[2020-09-29] MEDS: ENOXAPARIN SODIUM 40 MG/0.4 ML SYRINGE SQ SCH (09:36)
[2020-09-29] MEDS: LEVETIRACETAM 100 MG/ML 5 ML UDCUP GT SCH ×2 (09:36→22:51)
[2020-09-29 11:19] VITALS: BP 113/47
[2020-09-29 16:04] VITALS: BP 115/43
[2020-09-29 20:00] VITALS: BP 124/50
[2020-09-29] MEDS ORDERED: ZOSYN 3.375GM+NS 50ML 50 ML IV SCH (21:00)
[2020-09-29] MEDS: FAMOTIDINE 20MG VIAL IV SCH (22:51)
[2020-09-30] VITALS: BP 106/43
[2020-09-30 04:00] VITALS: BP 109/41
[2020-09-30] MEDS: TAMSULOSIN HCL 0.4 MG CAP.ER.24H PO SCH (07:39)
[2020-09-30 08:31] VITALS: BP 128/62
[2020-09-30] MEDS: CYANOCOBALAMIN (VITAMIN B-12) 1,000 MCG TABLET PO SCH (09:39)
[2020-09-30] MEDS: AMLODIPINE 5 MG TAB PO SCH (09:39)
[2020-09-30] MEDS: THIAMINE HCL 100 MG TABLET PO SCH (09:39)
[2020-09-30] MEDS: ENOXAPARIN SODIUM 40 MG/0.4 ML SYRINGE SQ SCH (09:39)
[2020-09-30] MEDS: FOLIC ACID 1 MG TABLET PO SCH (09:40)
[2020-09-30] MEDS: LEVETIRACETAM 100 MG/ML 5 ML UDCUP GT SCH ×2 (09:40→20:22)
[2020-09-30] MEDS: METOPROLOL TARTRATE 25 MG TAB PO SCH ×2 (09:40→20:22)
[2020-09-30] MEDS ORDERED: ACETAMINOPHEN 650 MG/20.3 ML UDCUP ONE (10:39)
[2020-09-30] MEDS ORDERED: ACETAMINOPHEN 650 MG/20.3 ML UDCUP GT PRN (10:45)
[2020-09-30] MEDS: FLUCONAZOLE 200 MG/NS 100 ML 100 ML IV SCH (11:29)
[2020-09-30] MEDS ORDERED: VANCOMYCIN PROTOCOL PER PHARMACY IV SCH (11:30)
[2020-09-30] MEDS ORDERED: MEROPENEM 1 GM VIAL IVP SCH (11:30)
[2020-09-30 11:55] VITALS: BP 136/71
[2020-09-30] MEDS: VANCOMYCIN 1G/250ML KIT 250 ML IV SCH (12:31)
[2020-09-30 15:35] VITALS: BP 129/57
[2020-09-30] MEDS: MEROPENEM 1 GM VIAL IVP SCH (20:21)
[2020-09-30] MEDS: FAMOTIDINE 20MG VIAL IV SCH (20:21)
[2020-09-30 21:09] VITALS: BP 131/63
[2020-10-01 00:28] VITALS: BP 124/53
[2020-10-01] MEDS: VANCOMYCIN 1G/250ML KIT 250 ML IV SCH ×2 (00:28→12:08)
[2020-10-01 04:21] VITALS: BP 112/47
[2020-10-01] MEDS: MEROPENEM 1 GM VIAL IVP SCH ×3 (05:11→21:09)
[2020-10-01] MEDS: TAMSULOSIN HCL 0.4 MG CAP.ER.24H PO SCH (07:32)
[2020-10-01 08:03] LABS: BASOPHILS % (AUTO) 0.7 % (0.0-5.0); HEMATOCRIT 26.6 % (42-54); LYMPHOCYTES % (AUTO) 13.6 % (21.0-51.0); MEAN CORPUSCULAR HEMOGLOBIN 27.6 pg (27.0-33.0); MEAN CORPUSCULAR HGB CONC 33.1 g/dL (32.0-36.0); MEAN CORPUSCULAR VOLUME 83.4 fL (79-99); MONOCYTES % (AUTO) 12.8 % (3.0-13.0); NEUTROPHILS % (AUTO) 70.2 % (40.0-77.0); PLATELET COUNT (AUTO) 566 K/uL (130-400); RED BLOOD CELL COUNT(AUTO) 3.19 MIL/uL (4.50-6.20); RED CELL DISTRIBUTION WIDTH 14.8 % (11.0-15.5); WHITE BLOOD COUNT (AUTO) 7.7 K/uL (4.8-10.8)
[2020-10-01] MEDS: LEVETIRACETAM 100 MG/ML 5 ML UDCUP GT SCH ×2 (08:12→21:09)
[2020-10-01] MEDS: FOLIC ACID 1 MG TABLET PO SCH (08:13)
[2020-10-01] MEDS: AMLODIPINE 5 MG TAB PO SCH (08:13)
[2020-10-01] MEDS: CYANOCOBALAMIN (VITAMIN B-12) 1,000 MCG TABLET PO SCH (08:13)
[2020-10-01] MEDS: METOPROLOL TARTRATE 25 MG TAB PO SCH ×2 (08:13→21:10)
[2020-10-01] MEDS: THIAMINE HCL 100 MG TABLET PO SCH (08:13)
[2020-10-01] MEDS: ENOXAPARIN SODIUM 40 MG/0.4 ML SYRINGE SQ SCH (08:15)
[2020-10-01 08:17] LABS: CREATININE 0.7 mg/dL (0.5-1.5); POTASSIUM 4.5 mmol/L (3.5-5.1)
[2020-10-01 08:36] VITALS: BP 114/51
[2020-10-01] MEDS: FLUCONAZOLE 200 MG/NS 100 ML 100 ML IV SCH (10:52)
[2020-10-01 11:28] VITALS: BP 132/59
[2020-10-01 15:58] VITALS: BP 144/90
[2020-10-01 20:00] VITALS: BP 130/59
[2020-10-01] MEDS: FAMOTIDINE 20MG VIAL IV SCH (21:09)
[2020-10-01] MEDS ORDERED: DESMOPRESSIN IJ SCH (21:15)
[2020-10-01] MEDS ORDERED: [UNRECOGNIZED DRUG - OTHER] IJ SCH (21:15)
[2020-10-01] MEDS ORDERED: DESMOPRESSIN ACETATE 4 MCG/ML 1ML AMP ONE ×2 (22:50→22:54)
[2020-10-02] MEDS: VANCOMYCIN 1G/250ML KIT 250 ML IV SCH ×2 (00:03→15:48)
[2020-10-02 01:14] VITALS: BP 138/54
[2020-10-02 04:02] LABS: BASOPHILS % (AUTO) 0.2 % (0.0-5.0); EOSINOPHILS % (AUTO) 0.2 % (0.0-8.0); HEMATOCRIT 30.4 % (42-54); LYMPHOCYTES % (AUTO) 5.9 % (21.0-51.0); MEAN CORPUSCULAR HGB CONC 32.2 g/dL (32.0-36.0); MEAN CORPUSCULAR VOLUME 83.7 fL (79-99); MONOCYTES % (AUTO) 3.5 % (3.0-13.0); NEUTROPHILS % (AUTO) 89.7 % (40.0-77.0); PLATELET COUNT (AUTO) 596 K/uL (130-400); RED BLOOD CELL COUNT(AUTO) 3.63 MIL/uL (4.50-6.20); RED CELL DISTRIBUTION WIDTH 14.7 % (11.0-15.5); WHITE BLOOD COUNT (AUTO) 13.5 K/uL (4.8-10.8)
[2020-10-02 04:03] VITALS: BP 142/59
[2020-10-02] MEDS: MEROPENEM 1 GM VIAL IVP SCH ×3 (04:25→22:51)
[2020-10-02 04:34] LABS: CREATININE 0.7 mg/dL (0.5-1.5); POTASSIUM 4.9 mmol/L (3.5-5.1)
[2020-10-02 08:00] VITALS: BP 132/95
[2020-10-02] MEDS ORDERED: OXYMETAZOLINE HCL SPRAY 15 ML BOTTLE EN SCH (09:00)
[2020-10-02] MEDS: THIAMINE HCL 100 MG TABLET PO SCH (09:01)
[2020-10-02] MEDS: AMLODIPINE 5 MG TAB PO SCH (09:01)
[2020-10-02] MEDS: CYANOCOBALAMIN (VITAMIN B-12) 1,000 MCG TABLET PO SCH (09:01)
[2020-10-02] MEDS: TAMSULOSIN HCL 0.4 MG CAP.ER.24H PO SCH (09:01)
[2020-10-02] MEDS: FOLIC ACID 1 MG TABLET PO SCH (09:02)
[2020-10-02] MEDS: METOPROLOL TARTRATE 25 MG TAB PO SCH ×2 (09:03→22:41)
[2020-10-02] MEDS: ENOXAPARIN SODIUM 40 MG/0.4 ML SYRINGE SQ SCH (09:03)
[2020-10-02] MEDS: LEVETIRACETAM 100 MG/ML 5 ML UDCUP GT SCH ×2 (09:04→22:44)
[2020-10-02 12:00] VITALS: BP 110/44
[2020-10-02] MEDS: FLUCONAZOLE 200 MG/NS 100 ML 100 ML IV SCH (12:41)
[2020-10-02 16:00] VITALS: BP 111/43
[2020-10-02 20:00] VITALS: BP 116/49
[2020-10-02] MEDS: FAMOTIDINE 20MG VIAL IV SCH (22:40)
[2020-10-03] MEDS: VANCOMYCIN 1G/250ML KIT 250 ML IV SCH (01:00)
[2020-10-03 01:54] VITALS: BP 131/68
[2020-10-03] MEDS ORDERED: OXYMETAZOLINE HCL SPRAY 15 ML BOTTLE EN SCH (09:00)
== END 2020-10-03 01:38 | DRG 70 ==
LOC: EDH 15:11 → EDHIP 19:57 → 4CH 22:32 → 4BH 09-14 11:14 → 4CH 09-25 18:41
PROVIDERS: ADMIT Hospitalist; ATTEND Hospitalist
PROC: 0DH63UZ Insertion of Feeding Device into Stomach, Percutaneous Approach (ICD-10-PCS; principal; 2020-09-19)
DX: G93.41 Metabolic encephalopathy (principal); A41.9 Sepsis, unspecified organism; J18.9 Pneumonia, unspecified organism; E43 Unspecified severe protein-calorie malnutrition; E87.1 Hypo-osmolality and hyponatremia; E86.0 Dehydration; D64.9 Anemia, unspecified; E78.00 Pure hypercholesterolemia, unspecified; E78.5 Hyperlipidemia, unspecified; E87.8 Other disorders of electrolyte and fluid balance, not elsewhere classified; F03.90 Unspecified dementia, unspecified severity, without behavioral disturbance, psychotic disturbance, mood disturbance, and anxiety; G40.909 Epilepsy, unspecified, not intractable, without status epilepticus; I10 Essential (primary) hypertension; K12.30 Oral mucositis (ulcerative), unspecified; N40.0 Benign prostatic hyperplasia without lower urinary tract symptoms; R13.12 Dysphagia, oropharyngeal phase; Y95 Nosocomial condition; Z20.822 Contact with and (suspected) exposure to COVID-19; M19.90 Unspecified osteoarthritis, unspecified site; R53.81 Other malaise; B95.61 Methicillin susceptible Staphylococcus aureus infection as the cause of diseases classified elsewhere; Z74.01 Bed confinement status
CPT/HCPCS: 36415; 43246; 70450; 71045; 74230; 80048; 80053; 80202; 80305; 81001; 82140; 82550; 82948; 83605; 83690; 83735; 84100; 84145; 84484; 85025; 85027; 85610; 85730; 87040; 87077; 87088; 87186; 87426; 92507; 92610; 92611; 93005; A4606; G0378; J0330; J0360; J0690; J1450; J1650; J1956; J2185; J2370; J2405; J2543; J2597; J2704; J3370; J3475; J3490; J7030; J7070; U0003